=== PATIENT | female | born 1985 | race Caucasian/White ===

== ENCOUNTER 2017-12-05 21:57 | Observation (INO) ==
--- OUTSIDE RECORDS SUMMARY | 2017-12-05 22:02 | External Medical Summary | Continuity of Care Document ---
:1985 Author Organization [facility] Address [address] [place], [place] [id number] Phone Care Team Providers Name Role Phone Antonia YOOVicente Unavailable Unavailable Allergies, Adverse Reactions, Alerts Substance Reaction Severity Status OXYCODONE HCL Unknown Active Medications Medication Instructions Dosage Effective Dates Status Comments (start - stop) citalopram 10 mg take 1 tablet by 10 MG - Active tablet oral route every day Vitamin take 1 tablet by Not Available - Active tablet oral route every day omeprazole 20 mg take 1 capsule by - Active capsule,delayed oral route every release day before a meal Problems Condition Effective Dates (start - stop) Clinical Status Morbid (severe) obesity due to excess calories Encntr for tare weigher exam (general) (routine) w abnormal findings Pap Smear Screening, Cervix Encounter for routine checking of intrauterine contracep dev Body mass index (BMI) 50-59.9 , adult Encounter for suprvsn of normal , first trimester Antepartum hemorrhage, unspecified, - second trimester 25 weeks gestation of - Morbid (severe) obesity due to excess - calories Matern care for oth or susp poor fetl - grth, 2nd tri, unsp Obesity complicating , second - trimester 19 weeks gestation of - Morbid (severe) obesity due to excess calories Encntr for tare weigher exam (general) (routine) w abnormal findings Encounter for removal of intrauterine - contraceptive device Encounter for removal of intrauterine contraceptive device Encounter for oth general cnsl and advice on procreation Body mass index (BMI) 50-59.9 , adult Myalgia Right lower quadrant pain Supervision of other high risk - pregnancies, second trimester Matern Care For Abnlt Fetl Hrt Rate Or - Rhym, Unsp Tri, Unsp Antepartum hemorrhage, unspecified, - unspecified trimester Obesity complicating , second - trimester Supervision of other high risk - pregnancies, second trimester Matern Care For Abnlt Fetl Hrt Rate Or - Rhym, Unsp Tri, Unsp Antepartum hemorrhage, unspecified, - second trimester Obesity complicating , second - trimester Supervision of other high risk - pregnancies, third trimester Antepartum hemorrhage, unspecified, - second trimester 29 weeks gestation of - Supervision of other high risk - pregnancies, third trimester Antepartum hemorrhage, unspecified, - second trimester 28 weeks gestation of - Supervision of other high risk - pregnancies, third trimester Matern Care For Abnlt Fetl Hrt Rate Or - Rhym, Unsp Tri, Unsp Antepartum hemorrhage, unspecified, - unspecified trimester 28 weeks gestation of - Spotting complicating , - second trimester 16 weeks gestation of - Matern care for oth or susp poor fetl - grth, 2nd tri, unsp Antepartum hemorrhage, unspecified, - unspecified trimester Obesity complicating , second - trimester 25 weeks gestation of - Matern care for oth or susp poor fetl - grth, 2nd tri, unsp 14 weeks gestation of - Matern Care For Abnlt Fetl Hrt Rate Or - Rhym, Unsp Tri, Unsp Antepartum hemorrhage, unspecified, - unspecified trimester Obesity complicating , second - trimester 27 weeks gestation of - Matern Care For Abnlt Fetl Hrt Rate Or - Rhym, Unsp Tri, Unsp Antepartum hemorrhage, unspecified, - unspecified trimester 27 weeks gestation of - Matern Care For Abnlt Fetl Hrt Rate Or - Rhym, Unsp Tri, Unsp Antepartum hemorrhage, unspecified, - second trimester Encounter for suprvsn of normal - , third trimester 28 weeks gestation of - Matern Care For Abnlt Fetl Hrt Rate Or - Rhym, Unsp Tri, Unsp Antepartum hemorrhage, unspecified, - unspecified trimester Obesity complicating , third - trimester 29 weeks gestation of - Matern Care For Abnlt Fetl Hrt Rate Or - Rhym, Unsp Tri, Unsp Antepartum hemorrhage, unspecified, - unspecified trimester Obesity complicating , third - trimester 28 weeks gestation of - Antepartum hemorrhage, unspecified, - unspecified trimester Antepartum hemorrhage, unspecified, - second trimester Abnormal glucose complicating - 26 weeks gestation of - Antepartum hemorrhage, unspecified, - second trimester 25 weeks gestation of - Antepartum hemorrhage, unspecified, - second trimester Abnormal glucose complicating - 27 weeks gestation of - Antepartum hemorrhage, unspecified, - second trimester 26 weeks gestation of - Obesity complicating , first - trimester Encounter for suprvsn of normal - , first trimester 9 weeks gestation of - Encounter for suprvsn of normal - , second trimester 23 weeks gestation of - Encounter for suprvsn of normal - , second trimester 19 weeks gestation of - IUD Surveillance - Active Active Procedures Procedure Date Unknown Results Test Name Date and Time Measure Units Reference Range Abnormal Flag Comments Unknown Advance Directives Directive Yes / No Effective Date File Name Unknown Encounters Encounter Practice Location Reason(s) Diagnoses Date Provider Care Team Description For Visit Members Billy Smith Supervision of Nov-2 Daugherty Referring In Womens other high risk 6-201 Mandie. Provider: Health CRISTIANO, pregnancies, 8 700 Mandie Daugherty [address] Medical K, [address], [facility] hemorrhage, , [facility] [address] [place], unspecified, 120, Mohinder 120, [id number], second Luis [place], [place] [id number] weeks MICHELE [place], tel:+[phone] gestation of [phone]. , [place]. tel: tel: [phone] Billy Smith Matern Care For Nov- Daugherty Referring In Womens Ultrasound Abnlt Fetl Hrt 6- Mandie. Provider: Pam QUINONEZ, Rate Or Rhym, 8 700 Mandie Daugherty PO Box Unsp [facility], Medical K, 700 1522, UnspAntepartum [facility], hemorrhage, , [facility] Dr [place], unspecified, 120, Mohinder 120, [id number], unspecified Luis [place], [place] trimesterObesity MICHELE [place], tel:+2 complicating [phone]. , third , [place]. tel:+ [email or web address] weeks tel: [phone] gestation of [id number] Billy Smith Supervision of Nov- Daugherty Referring In Womens other high risk 3-201 Mandie. Provider: Health CRISTIANO, pregnancies, 8 700 Mandie Daugherty [address] third Medical K, 700 15[address], [facility] hemorrhage, , [facility] Dr [place], unspecified, 120, Mohinder 120, [id number], second Luis [place], [place] [email or web address] weeks MICHELE [place], tel:[phone] gestation of [phone]. , [place]. tel: tel: [phone] Billy Smith Supervision of Nov- Daugherty Referring In Womens Ultrasound other high risk 3-201 Mandie. Provider: Health PA, pregnancies, 8 700 Mandie Daugherty [address] Medical K, 700 1522, trimesterMatern [facility], Care For Abn[address], [facility] Dr [place], Fetl Hrt Rate Or 120, Mohinder 120, [id number], Rhym, Luis L[place], [place] UnspAntepartum MICHELE [place], tel: hemorrhage, [phone]. unspecified, , [place]. tel: unspecified tel: [phone] [email or web address] weeks [phone] gestation of [facility] Matern Care For Nov- Flash Referring In Womens Abnlt Fetl Hrt 9-201 Aldo. 700 Provider: Pam QUINONEZ, Rate Or Rhym, 8 Medical Mandie Daugherty PO Box Unsp Tri, Center K, [address], UnspAntepart , [facility], hemorrhage, 120, Center Dr [place], unspecified, [place], Mohinder 120, [id number], second Luis [place], trimesterEncounte [id number] [place], tel: r for suprvsn of , [place]. [id number]. normal , tel: tel: third [id number] [phone] weeks gestation of [facility] Matern Care For Daugherty Referring In Womens Ultrasound Abnlt Fetl Hrt 9-201 Mandie. Provider: Pam QUINONEZ, Rate Or Rhym, 8 700 Mandie Daugherty PO Box Unsp Tri, [facility], 700 1522, [facility], Dr, [facility] Dr [place], unspecified, 120, Mohinder 120, [id number], unspecified Luis [place], [place] trimesterObesity MICHELE, MICHELE, tel: complicating [phone]. , third , [place]. tel: [email or web address] weeks tel: [phone] gestation of [id number] Associates [facility] Supervision of Sobbing Referring In Womens other high risk 6-201 Silas. Provider: Pam QUINONEZ, pregnancies, 8 700 Mandie Daugherty PO Box second Medical K, 700 1522, trimesterMatern [facility], [address], [place] [address] [place], Fetl Hrt Rate Or [address] 120, [id number], Rhym, Unsp Tri, 120, [place], [place] UnspAntepartum Luis MICHELE, tel: hemorrhage, [place], [phone]. unspecified, [address], tel: unspecified US. [phone] trimesterObesity tel: complicating [phone] , second trimester [facility] Matern Care For Nov-1 Daugherty Referring In Womens Ultrasound Abnlt Fetl Hrt 6-201 Mandie. Provider: Health PA, Rate Or Rhym, 8 700 Mandie Daugherty PO Box Unsp Tri, Medical K, 700 1522, [facility], hemorrhage, , [facility] Center Dr [place], unspecified, 120, Mohinder 120, [id number], unspecified Luis [place], [place] trimesterObesity MICHELE [place], tel: complicating [phone]. , second , [place]. tel: weeks tel: [phone] gestation of [id number] Associates [facility] Antepartum Nov-1 Daugherty Referring In Womens hemorrhage, 2-201 Mandie. Provider: Pam QUINONEZ, unspecified, 8 700 Mandie Daugherty PO Box [facility] Medical K, 700 1522, trimesterAbnormal [facility], glucose , [facility] Center Dr [place], complicating 120, Mohinder 120, [id number], [email or web address] weeks Luis [place], [place] gestation of MICHELE, MICHELE, tel: [phone]. , [place]. tel: tel: [phone] Billy Smith Matern Care For Nov-1 Daugherty Referring In Womens Ultrasound Abnlt Fetl Hrt 2-201 Mandie. Provider: Health PA, Rate Or Rhym, 8 700 Mandie Daugherty PO Box Unsp Tri, Medical K, 700 1522, [facility], , [facility] Center Dr [place], unspecified, 120, Mohinder 120, [id number], unspecified Luis [place], [place] [id number] weeks MICHELE [place], tel: gestation of [phone]. , [place]. tel: tel: [phone] Billy Smith Antepartum Walker-0 Daugherty Referring In Womens hemorrhage, 9-201 Mandie. Provider: Pam QUINONEZ, key, 8 700 Mandie Daugherty PO Box second Medical K, 700 1522, trimesterAbnormal [facility] [place], danya Trejo, [facility] Dr [place], complicating 120, Mohinder 120, [id number], [email or web address] weeks Luis [place], gestation of MICHELE, MICHELE, tel: [phone]. , [place]. tel: tel: [phone] Associates [facility] Walker-0 Daugherty In Womens 5-201 Mandie. Pam QUINONEZ, 8 700 [address] Medical [address], [place], , [facility] MICHELE, 120, , [facility] [place], tel:[phone] , [place]. tel: [phone] Billy Smith Antepartum Walker-0 Daugherty Referring In Womens hemorrhage, 5-201 Mandie. Provider: Pam QUINONEZ, key, 8 700 Mandie Daugherty PO Box second Medical K, 700 1522, [email or web address] weeks [facility] [place], gestation of Dr, [facility] Dr [place], 120, Mohinder 120, [id number], Luis [place], MICHELE [place], tel: [phone]. , [place]. tel: tel: [phone] Billy Smith Antepartum Walker-0 Daugherty Referring In Womens hemorrhage, 2-201 Mandie. Provider: Pam QUINONEZ, key, 8 700 Mandie Daugherty PO Box second Medical K, 700 1522, [email or web address] weeks [facility] [place], gestation of , [facility] Dr [place], 120, Mohinder 120, [id number], Luis [place], MICHELE, MICHELE, tel: [phone]. , [place]. tel: tel: [phone] Billy Smith Antepartum Rajendra-2 Daugherty Referring In Womens hemorrhage, 8-201 Mandie. Provider: Pam QUINONEZ, unspecified, 8 700 Mandie Daugherty PO Box second Medical K, 700 1522, weeks [facility] [place], gestation of Dr, [facility] Center Dr [place], 120, Mohinder 120, , [place], [place], [place], tel:+ [phone]. , [place]. tel: tel: [phone] [facility] Matern care for Rajendra-2 Daugherty Referring In Womens Ultrasound oth or susp poor - Mandie. Provider: Pam QUINONEZ, fetl grth, 2nd 8 700 Mandie Daugherty PO Box tri, [facility], 700 1522, unspAntepartum [facility] [place], kimani, , [facility] Dr [place], unspecified, 120, Mohinder 120, , unspecified Luis [place], trimesterObesity MICHELE, MICHELE, tel:+ complicating [phone]. , second , [place]. tel:+ [email or web address] weeks tel: [phone] gestation of [id number] Associates [facility] Supervision of Rajendra-2 Kindel Referring In Womens other high risk - Gina. Provider: Pam QUINONEZ, pregnancies, 8 [address] Mandie Daugherty PO Box second Arik, , 700 1522, [facility] MICHELE, [address] [address] [place], Fetl Hrt Rate Or [id number] Mohinder 120, [id number], Rhym, Unsp Tri, , [place]. [place], UnspAntepartum tel: [place], tel:+ hemorrhage, [phone]. unspecified, tel:+ second [phone] trimesterObesity complicating , second trimester [facility] Antepartum Rajendra-2 Daugherty Referring In Womens hemorrhage, - Mandie. Provider: Pam QUINONEZ, unspecified, 8 700 Mandie Daugherty PO Box unspecified Medical K, 700 1522, trimester [address], [facility] Center Dr [place], 120, Mohinder 120, , Luis [place], [place] MICHELE [place], tel: [phone]. , [place]. tel: tel: [phone] Billy Smith Encounter for Rajendra-1 Daugherty Referring In Womens suprvsn of normal 4-201 Mandie. Provider: Pam QUINONEZ, , second 8 700 Mandie Daugherty PO Box [id number] weeks Medical , 700 1522, gestation of [facility], , [facility] [place], 120, Mohinder 120, [id number], Luis [place], [facility], [place], tel: [phone]. , [place]. tel: tel: [phone] Billy Smith Encounter for May-1 Daugherty Referring In Womens suprvsn of normal 7-201 Mandie. Provider: Pam QUINONEZ, , second 8 700 Mandie Daugherty PO Box [email or web address] weeks [facility], 700 1522, gestation of [facility], , [facility] Dr [place], 120, Mohinder 120, [id number], Luis [place], [facility], [place], tel: [phone]. , [place]. tel: tel: [phone] Billy Smith Morbid (severe) May-1 Daugherty Referring In Womens Ultrasound obesity due to 7-201 Mandie. Provider: Pam QUINONEZ, excess 8 700 Mandie Daugherty PO Box caloriesMatern [facility], 700 1522, care for oth or [facility], susp poor fetl , [facility] Dr [place], grth, 2nd tri, 120, Mohinder 120, , unspObesity Luis [place], complicating MICHELE, MICHELE, tel: , second [phone]. [id number] weeks , [place]. tel: gestation of tel: [phone] Billy Smith Spotting May-0 Daugherty Referring In Womens complicating 2-201 Mandie. Provider: Pam QUINONEZ, , second 8 700 Mandie Daugherty PO Box [email or web address] weeks [facility], 700 1522, gestation of [facility], , [facility] Dr [place], 120, Mohinder 120, [id number], Luis [place], MICHELE [place], tel:[phone]. , [place]. tel: tel: [phone] Billy Smith Matern care for Apr-1 Daugherty Referring In Womens oth or susp poor 2-201 Mandie. Provider: Pam QUINONEZ, fetl grth, 2nd 8 700 Mandie Daugherty PO Box tri, [id number] weeks Medical , 700 1522, gestation of [facility], , [facility] Dr [place], 120, Mohinder 120, , Luis [place], MICHELE [place], tel:[phone]. , [place]. tel: tel: [phone] Billy Smith Obesity Mar-0 Daugherty Referring In Womens complicating 9-201 Mandie. Provider: Pam QUINONEZ, , first 8 700 Mandie Daugherty PO Box trimesterEncounte Medical , 700 1522, r for suprvsn of [facility], normal , , [facility] Dr [place], first trimester9 120, Mohinder 120, [id number], weeks gestation Luis [place], [place] of MICHELE [place], tel:[phone]. , [place]. tel: tel: [phone] Billy Smith Encounter for Jun-2 Sobbing Referring In Womens suprvsn of normal 3-201 Silas. Provider: Pam QUINONEZ, , first 8 700 Mandie Daugherty PO Box trimester Medical K, 700 1522, [facility], [facility], [address] [address] [place], Suite Mohinder 120, , 120, [place], [place] MICHELE [place], tel: MICHELE, [phone]. [id number], tel: [place]. [phone] tel: [phone] Billy Smith MyalgiaRight Aug-2 Daugherty Referring In Womens lower quadrant 2-201 Mandie. Provider: Pam QUINONEZ, pain 7 700 Mandie Daugherty PO Box Medical , 700 1522, [address], [facility] Dr [place], 120, Mohinder 120, , Luis [place], [place] MICHELE [place], tel: [phone]. , [place]. tel: tel: [phone] Associates Luis Morbid (severe) Apr-2 Daugherty Referring In Womens obesity due to Mandie. Provider: Health CRISTIANO, excess 7 700 Mandie Daugherty PO Box caloriesEncntr [facility], 700 1522, for tare weigher exam [facility], (general) , [facility] Dr [place], (routine) w 120, Mohinder 120, , abnormal Luis [place], [place] findingsEncounter MICHELE [place], tel: for removal of [phone]. intrauterine , [place]. tel: contraceptive tel: [phone] deviceEncounter [id number] for removal of intrauterine contraceptive deviceEncounter for oth general cnsl and advice on procreationBody mass index (BMI) 50-59.9 , adult [facility] Morbid (severe) Apr-2 Daugherty Referring In Womens obesity due to Mandie. Provider: Health CRISTIANO, excess 6 700 Mandie Daugherty PO Box [facility], 700 1522, for tare weigher exam [facility], (general) , [facility] Dr [place], (routine) w 120, Mohinder 120, , abnormal Luis [place], [place] findingsPap Smear MICHELE [place], tel: Screening, [phone]. CervixEncounter , [place]. tel: for routine tel: [phone] checking of [phone] intrauterine contracep devBody mass index (BMI) 50-59.9 , adult Associates Luis Dec-2 Oneil Referring In Womens 4-201 Analy. Provider: Health CRISTIANO, 4 700 Mandie Daugherty PO Box [facility], 700 15[address], [place] [address], [facility] Dr [place], 120, Mohinder 120, , Luis [place], [place] MICHELE [place], tel: [phone]. , [place]. tel: tel: [phone] Billy Smith Daugherty In Womens 1-201 Mandie. [employer] CRISTIANO, 4 700 PO [facility] [address], [address] [address] [place]da, [facility] [place], 120, [id number], [place], [place], tel: [phone] , . tel: [phone] Family History Family Member Diagnosis Age At Onset No family history of Stroke No family history of Kidney Problems No family history of Osteoporosis No family history of Epilepsy No family history of Hypertension Maternal aunt Thrombosis 40 No family history of Uterine Cancer No family history of Thyroid Disorder No family history of Colon Cancer Father Diabetes mellitus No family history of Cardiovascular Disease No family history of Breast Cancer Mother Diabetes mellitus No family history of Lung Disease No family history of Ovarian Cancer Immunizations Vaccine Date Status Comments Tdap completed Source: New Immunization Record Influenza, injectable, completed Note: Invalid documented admin quadrivalent, preservative free, date was . ; 3 yrs or older Source: Other Provider Payers Payer name Insurance type Covered libertarian ID Authorization(s) Prime [id number] BCBS Out Of State [id number] [facility] [id number] Medicaid [facility] [id number] Medicaid Social History Type Description Quantity Date Captured Unknown Vital Signs Date / Height Weight BMI Pulse Blood Temperature Respiratory Body Head BMI Time: Rate Pressure Rate Surface Circumference percentile Area Unknown Chief Complaint And Reason For Visit Unknown Chief Complaint And Reason For Visit Reason For Referral Reason For Referral Unknown Plan Of Care Date Type Action Status Goal Lifestyle education regarding completed diet Goal Lifestyle education regarding completed diet Goal Lifestyle education regarding completed diet Appointment Chelsy Moser BOOKED Appointment Chelsy Moser BOOKED Appointment Chelsy Moser BOOKED Chelsy Meng BOOKED Appointment Chelsy Moser BOOKED Chelsy Meng BOOKED Appointment Chelsy Moser BOOKED Appointment Chelsy Moser BOOKED Josie [place], Chelsy BOOKED Appointment Hardesty, Chelsy BOOKED Appointment Hardesty, Chelsy BOOKED Appointment Hardesty, Chelsy BOOKED Appointment Hardesty, Chelsy BOOKED Appointment Hardesty, Chelsy BOOKED Appointment Hardesty, Chelsy BOOKED Appointment Hardesty, Chelsy BOOKED Appointment Hardesty, Chelsy BOOKED Appointment Hardesty, Chelsy BOOKED Appointment Hardesty, Chelsy BOOKED Appointment Hardesty, Chelsy BOOKED Future Order: Radiology Order Complete OB Ultrasound > 14 Weeks Ordered ([id number]) Future Order: Radiology Order Biophysical Profile without NST Ordered ([id number]) Future Order: Radiology Order Biophysical Profile without NST Ordered ([id number]) Future Order: Radiology Order Biophysical Profile without NST Ordered ([id number]) Future Order: Radiology Order Biophysical Profile without NST Ordered ([id number]) Future Order: Radiology Order Biophysical Profile without NST Ordered ([id number]) Future Order: Radiology Order Ultrasound OB Follow-up ([id number]) Ordered Future Order: Radiology Order Biophysical Profile without NST Ordered ([id number]) Date Type Problem Goal Intervention Status Start Date Unknown. History Of Present Illness Encounter Date Complaint History Of Present Illness This patient has no known history of present illness Functional Status Encounter Date Functional Assessment Cognitive Assessment Unknown Medications Administered Medication Instructions Dosage Effective Dates (start - stop) Status Comments Drug Treatment Unknown Instructions Date Instruction Additional Information gestational glucose lab screening HIV and other routine tests risk factors identified by history anticipated course of care nutrition and weight gain counseling, special diet toxoplasmosis precautions (cats / raw meat) exercise indications for ultrasound influenza vaccine environmental / work hazards travel tobacco (ask, advise, assess, assist and arrange) alcohol illicit / recreational drugs use of any medications (including supplements, vitamins, herbs, OTC drugs) smoking counseling domestic violence seat belt use genetic testing new ob handbook Zika virus assessment & precautions dentist, wt gain 15-20# Giving encouragement to exercise Related to Body mass index 50.0-59.9 Lifestyle education regarding diet Related to Body mass index 50.0-59.9 Giving encouragement to exercise Related to Body mass index 50.0-59.9 Lifestyle education regarding diet Related to Body mass index 50.0-59.9 Giving encouragement to exercise Related to Body mass index 50.0-59.9 Lifestyle education regarding diet Related to Body mass index 50.0-59.9
--- OUTSIDE RECORDS SUMMARY | 2017-12-05 22:02 | External Medical Summary | Continuity of Care Document ---
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 Advance Directives Directive Yes / No Effective Date File Name Unknown Encounters Encounter Practice Location Reason(s) Diagnoses Date Provider Care Team Description For Visit Members Billy Smith Supervision of Nov-2 Daugherty Referring In Womens other high risk 6-201 Mandie. Provider: Health CRISTIANO, pregnancies, 8 700 Mandie Daugherty [address] Box [facility] , 700 1522, [facility], Dr, [facility] [address] [place], unspecified, 120, Mohinder 120, [id number], second Luis [place], [place] [id number] weeks MICHELE [place], tel:+ gestation of [phone]. , [place]. tel: tel:[phone] Billy Smith Matern Care For Nov-2 Daugherty Referring In Womens Ultrasound Abnlt Fetl Hrt 6-201 Mandie. Provider: Pam QUINONEZ, Rate Or Rhym, 8 700 Mandie Daugherty PO Box Unsp [facility] Medical K, 700 1522, UnspAntepartum [facility], hemorrhage, Dr, [facility] [address] [place], unspecified, 120, Mohinder 120, [id number], unspecified Luis Smith, [place] trimesterObesity MICHELE [place], tel:+ complicating [phone]. , third , [place]. tel:+ [email or web address] weeks tel: [phone] gestation of [id number] [facility] Supervision of Nov-2 Daugherty Referring In Womens other high risk 3-201 Mandie. Provider: Pam QUINONEZ, pregnancies, 8 700 Mandie Daugherty PO Box third Medical K, 700 1522, [facility]Antepart [facility], [facility] Dr, [facility] [address] [place], unspecified, 120, Mohinder 120, [id number], second Luis Smith, [place] [id number] weeks [place], MICHELE, tel: gestation of [phone]. , [place]. tel: tel: [phone] [facility] Supervision of Nov- Daugherty Referring In Womens Ultrasound other high risk - Mandie. Provider: Health CRISTIANO, pregnancies, 8 700 Mandie Daugherty PO Box third Medical K, 700 1522, trimesterMatern [facility], [facility] For Abnlt Dr, [facility] [address] [place], Fetl Hrt Rate Or 120, Mohinder 120, [id number], Rhym, Luis Landeros Smith, [place] UnspAntepartum [place], [place], tel: hemorrhage, [phone]. unspecified, , [place]. tel: unspecified tel: [phone] [id number] weeks [id number] gestation of [facility] Matern Care For Nov- Flash Referring In Womens Abnlt Fetl Hrt Aldo. 700 Provider: Health CRISTIANO, Rate Or Rhym, 8 Medical Mandie Daugherty PO Box Unsp Tri, [place], 700 1522, UnspAntepartum , [facility] [place], hemorrhage, 120, [place] [address] [place], unspecified, [place], Mohinder 120, [id number], second Luis [place], trimesterEncounte [id number] [place], tel: r for suprvsn of , [place]. [id number]. normal , tel: tel: third [phone] weeks gestation of [facility] Matern Care For Nov- Daugherty Referring In Womens Ultrasound Abnlt Fetl Hrt Mandie. Provider: Pam QUINONEZ, Rate Or Rhym, 8 700 Mandie Daugherty PO Box Unsp Tri, [facility], 700 1522, [facility]spAntepartum [facility], [facility], Dr, [facility] [address] [place], unspecified, 120, Mohinder 120, [id number], unspecified Luis Smith, [place] trimesterObesity MICHELE [place], tel: complicating [phone]. , third , [place]. tel: [email or web address] weeks tel: [phone] gestation of [id number] [facility] Supervision of Sobbing Referring In Womens other high risk 6-201 Silas. Provider: Health PA, pregnancies, 8 700 Mandie Daugherty PO Box [facility] Medical , 700 1522, trimesterMatern [facility], Care For Abnlt Drive, [place] [address] [place], Fetl Hrt Rate Or Suite Mohinder 120, , Rhym, Unsp Tri, 120, [place], [place] UnspAntepartum MICHELE Smith, tel: hemorrhage, MICHELE, [id number]. unspecified, [id number], tel: unspecified US. [phone] trimesterObesity tel: complicating [phone] , second trimester [facility] Matern Care For Daugherty Referring In Womens Ultrasound Abnlt Fetl Hrt 6-201 Mandie. Provider: Health PA, Rate Or Rhym, 8 700 Mandie Daugherty PO Box Unsp Tri, Medical , 700 1522, [facility], [facility], Dr, [facility] Dr [place], unspecified, 120, Mohinder 120, [id number], unspecified Luis Smith, [place] trimesterObesity MICHELE [place], tel: complicating [phone]. , second , [place]. tel: weeks tel: [phone] gestation of [id number] [facility] Antepartum Nov- Daugherty Referring In Womens hemorrhage, 2-201 Mandie. Provider: Health PA, unspecified, 8 700 Mandie Daugherty PO Box second Medical K, 700 1522, trimesterAbnormal [facility], glucose Dr, [facility] Dr [place], complicating 120, Mohinder 120, [id number], [email or web address] weeks Luis Smith, [place] gestation of MICHELE [place], tel: [phone]. , [place]. tel: tel: [phone] Billy Smith Matern Care For Walker-1 Daugherty Referring In Womens Ultrasound Abnlt Fetl Hrt 2-201 Mandie. Provider: Pam QUINONEZ, Rate Or Rhym, 8 700 Mandie Daugherty PO Box Unsp [facility], 700 1522, UnspAntepartum [facility], [facility], , [facility] [address] [place], unspecified, 120, Mohinder 120, [id number], unspecified Luis Smith, [email or web address] weeks MICHELE [place], tel: gestation of [phone]. , [place]. tel: tel: [phone] Billy Smith Antepartum Walker-0 Daugherty Referring In Womens hemorrhage, 9-201 Mandie. Provider: Pam QUINONEZ, vickiified, 8 700 Mandie Daugherty PO Box [facility], 700 1522, trimesterAbnormal [facility], glucose Dr, [facility] [address] [place], complicating 120, Mohinder 120, [id number], [email or web address] weeks Luis Smith, gestation of MICHELE [place], tel: [phone]. , [place]. tel: tel: [phone] Billy Smith Walker-0 Daugherty In Womens 6-201 Mandie. Pam QUINONEZ, 8 700 PO Box Medical 1522, [place], Mohinder Trejo, 120, [id number], [place], [place], tel: [phone] , [place]. tel: [phone] Billy Smith Antepartum Walker-0 Daugherty Referring In Womens hemorrhage, 5-201 Mandie. Provider: Pam QUINONEZ, vickiified, 8 700 Mandie Daugherty PO Box [facility], 700 1522, [email or web address] weeks [facility] [place], gestation of Dr, [facility] [address] [place], 120, Mohinder 120, [id number], Luis Smith, MICHELE [place], tel: [phone]. , [place]. tel: tel: [phone] Billy Smith Antepartum Walker-0 Daugherty Referring In Womens hemorrhage, 2-201 Mandie. Provider: Pam QUINONEZ, unspecified, 8 700 Mandie Daugherty PO Box [facility] Medical , 700 1522, [email or web address] weeks [facility], [facility] of , [facility] [place], 120, Mohinder 120, [id number], [place], [place], [place], tel:[phone]. , [place]. tel: tel: [phone] Billy Smith Antepartum Rajendra-2 Daugherty Referring In Womens hemorrhage, 8-201 Mandie. Provider: Pam QUINONEZ, unspecified, 8 700 Mandie Daugherty PO Box [facility] Medical , 700 1522, [email or web address] weeks [facility], gestation of , [facility] [address] [place], 120, Mohinder 120, , [place], [place], [place], tel:[phone]. , [place]. tel: tel: [phone] Billy Smith Matern care for Rajendra-2 Daugherty Referring In Womens Ultrasound oth or susp poor 8- Mandie. Provider: Pam QUINONEZ, fetl grth, 2nd 8 700 Mandie Daugherty PO Box [facility], 700 1522, unspAntepartum [facility], hemorrhage, Dr, [facility] [address] [place], unspecified, 120, Mohinder 120, , unspecified Luis Smith, trimesterObesity MICHELE, MICHELE, tel: complicating [phone]. , second , [place]. tel: [email or web address] weeks tel: [phone] gestation [facility] [id number] [facility] Supervision of Rajendra-2 Kindel Referring In Womens other high risk 4-201 Gina. Provider: Pam QUINONEZ, pregnancies, 8 3232 E Mandie Daugherty PO Box second [facility], 700 1522, [facility]Matern [facility], [facility] [place], [place] [address] [place], Fetl Hrt Rate Or [id number] Mohinder 120, , Rhym, Unsp [facility] , [place]. [place], UnspAntepartum tel: [place], tel: hemorrhage, [phone]. unspecified, tel: second [phone] trimesterObesity complicating , second trimester [facility] Antepartum Rajendra-2 Daugherty Referring In Womens hemorrhage, 4-201 Mandie. Provider: Pam QUINONEZ, unspecified, 8 700 Mandie Daugherty PO Box unspecified Medical , 700 1522, trimester [place] Kevyn Gutierrez, , [facility] [place], 120, Mohinder 120, , [place], [place], [place], tel: [phone]. , [place]. tel: tel: [phone] Billy Smith Encounter for Rajendra-1 Daugherty Referring In Womens suprvsn of normal 4-201 Mandie. Provider: Pam QUINONEZ, , second 8 700 Mandie Daugherty PO Box [email or web address] weeks Medical , 700 1522, gestation of [facility] [place], Dr, [facility] [address] [place], 120, Mohinder 120, , Luis Smith, [place] MICHELE, MICHELE, tel: [phone]. , [place]. tel: tel: [phone] Smith Encounter for May-1 Daugherty Referring In Womens suprvsn of normal 7-201 Mandie. Provider: Pam QUINONEZ, , second 8 700 Mandie Daugherty PO Box [email or web address] weeks Medical , 700 1522, gestation of [place]evyn Gutierrez, Dr, [facility] [address] [place], 120, Mohinder 120, [id number], Luis [place], [place], [place], tel: [phone]. , [place]. tel: tel: [phone] Billy Smith Morbid (severe) May-1 Daugherty Referring In Womens Ultrasound obesity due to 7-201 Mandie. Provider: Pam QUINONEZ, excess 8 700 Mandie Daugherty PO Box caloriesMatern [facility], 700 1522, care for oth or [facility] [place], susp poor fetl , [facility] [address] [place], grth, 2nd tri, 120, Mohinder 120, [id number], unspObesity Luis Smith, complicating MICHELE [place], tel: , second [phone]. [email or web address] weeks , [place]. tel: gestation of tel: [phone] Billy Smith Spotting May-0 Daugherty Referring In Womens complicating 2-201 Mandie. Provider: Pam QUINONEZ, , second 8 700 Mandie Daugherty PO Box [email or web address] weeks Medical , 700 1522, gestation of [facility], , [facility] [address] [place], 120, Mohinder 120, [id number], Luis Smith, MICHELE [place], tel:[phone]. , [place]. tel: tel: [phone] Billy Smith Matern care for Apr-1 Daugherty Referring In Womens oth or susp poor 2-201 Mandie. Provider: Pam QUINONEZ, fetl jacob, 2nd 8 700 Mandie Daugherty PO Box tri, [id number] weeks Medical , 700 1522, gestation of [facility], , [facility] [address] [place], 120, Mohinder 120, [id number], Luis Smith, MICHELE [place], tel: [phone]. , [place]. tel: tel: [phone] Billy Smith Obesity Mar-0 Daugherty Referring In Womens complicating 9-201 Mandie. Provider: Pam QUINONEZ, , first 8 700 Mandie Daugherty PO Box trimesterEncounte Medical K, 700 1522, r for suprvsn of [facility], normal , , [facility] [address] [place], first trimester9 120, Mohinder 120, [id number], weeks gestation Luis Smith, [place] of MICHELE [place], tel: [phone]. , [place]. tel: tel: [phone] Billy Smith Encounter for Fe-2 Sobbing Referring In Womens suprvsn of normal 3-201 Silas. Provider: Pam QUINONEZ, , first 8 700 Mandie Daugherty PO Box trimester Medical , 700 1522, [facility], [place] [address] [place], Suite Mohinder 120, [id number], Luis Meehan, MICHELE Chawla, tel: MICHELE, [phone]. [id number], tel: US. [phone] tel: [phone] [facility] MyalgiaRight Aug-2 Daugherty Referring In Womens lower quadrant 2-201 Mandie. Provider: Pam QUINONEZ, pain 7 700 Mandie Daugherty PO Box [facility], 700 1522, [facility] [place], Dr, [facility] [address] [place], 120, Mohinder 120, , Luis Smith, [place] MICHELE [place], tel:[phone]. , [place]. tel: tel: [phone] [facility] Morbid (severe) Apr-2 Daugherty Referring In Womens obesity due to 1-201 Mandie. 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 intrauterine , [place]. tel: contraceptive tel: [phone] deviceEncounter [phone] for removal of intrauterine contraceptive deviceEncounter for oth general cnsl and advice on procreationBody mass index (BMI) 50-59.9 , adult [facility] Morbid (severe) Apr-2 Daugherty Referring In Womens obesity due to 9-201 Mandie. 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 CervixEncounter , . tel: for routine tel: [phone] checking of [id number] intrauterine contracep devBody mass index (BMI) 50-59.9 , adult [facility] Oneil Referring In Womens - [place]. Provider: Pam QUINONEZ, 4 700 Mandie Daugherty PO Box Medical K, 700 1522, [place] [address], [place], 120, Mohinder 120, [id number], [place], [place], [place], tel: [phone]. , [place]. tel: tel: [phone] [facility] Daugherty In Womens - Mandie. Health CRISTIANO, 4 700 PO Box Medical 1522, [place] [address] Brenda, Mohinder [place], 120, [id number], [place], [place], tel: [phone] , . tel: [phone] Family History Family Member Diagnosis Age At [...] Provider Payers Payer name Insurance type Covered green party ID Authorization(s) Adrienne Wilson [id number] BCBS Out Of State [id number] [facility] - [id number] Medicaid [facility] [id number] Medicaid Social History Type Description Quantity Date [...] Goal Lifestyle education regarding completed diet Appointment Loughman, Chelsy BOOKED Appointment Loughman, Chelsy BOOKED Appointment Loughman, Chelsy BOOKED Appointment Loughman, Chelsy BOOKED Appointment Loughman, Chelsy BOOKED Appointment Loughman, Chelsy BOOKED Appointment Loughman, Chelsy BOOKED Appointment Loughman, Chelsy BOOKED Appointment Loughman, Chelsy BOOKED Appointment Loughman, Chelsy BOOKED Appointment Loughman, Chelsy BOOKED Appointment Loughman, Chelsy BOOKED Appointment Loughman, Chelsy BOOKED Appointment Loughman, Chelsy BOOKED Appointment Loughman, Chelsy BOOKED Appointment Loughman, Chelsy BOOKED Appointment Loughman, Chelsy BOOKED Appointment Loughman, Chelsy BOOKED Appointment Loughman, Chelsy BOOKED Appointment [place]man, Chelsy BOOKED Future Order: Radiology Order Complete OB Ultrasound > 14 Weeks Ordered ([id number]) Future Order: Radiology Order Biophysical Profile without NST Ordered ([id number]) Future Order: Radiology Order Biophysical Profile without NST Ordered ([id number]) Future Order: Radiology Order Biophysical Profile without NST Ordered ([id number]) Future Order: Radiology Order Biophysical Profile without NST Ordered ([id number]) Future Order: Radiology Order Biophysical Profile without NST Ordered ([id number]) Future Order: Radiology Order Ultrasound OB Follow-up ([id number]) Ordered Future Order: Radiology Order Biophysical Profile without NST Ordered ([id number]) Date Type Problem Goal Intervention Status Start [...]
--- OUTSIDE RECORDS SUMMARY | 2017-12-05 22:02 | External Medical Summary | Continuity of Care Document ---
:1985 Author Organization [facility] Address [address] [place], [place] [id number] Phone Care Team Providers Name Role Phone [...] Effective Dates (start - stop) Clinical Status Antepartum hemorrhage, unspecified, - second trimester 26 weeks gestation of - Morbid (severe) obesity due to excess calories Encntr for conveyor line battery charger exam (general) (routine) w abnormal findings Pap [...] obesity due to excess calories Encntr for conveyor line battery charger exam (general) (routine) w abnormal findings Encounter for removal of intrauterine Apr-21-2017 - contraceptive device Encounter for removal of [...] complicating - 27 weeks gestation of - Obesity complicating , first - trimester Encounter for suprvsn of normal - , first trimester 9 weeks gestation of - Encounter for suprvsn of normal - , second trimester 23 weeks gestation of - Encounter for suprvsn of normal - , second trimester 19 weeks gestation of - IUD Surveillance - Active Active Procedures Procedure Date non-stress test OB Visit No Charge Results Test Name Date and Time Measure Units Reference Range Abnormal Flag Comments Panel Description: CBC With Differential/Platelet WBC 11:45:00 8.4 x10E3/uL 3.4-10.8 RBC 11:45:00 3.90 x10E6/uL 3.77-5.28 Hemoglobin 11:45:00 10.6 g/dL 11.1-15.9 L Hematocrit 11:45:00 33.7 % 34.0-46.6 L MCV 11:45:00 86 fL 79-97 MCH 11:45:00 27.2 pg 26.6-33.0 MCHC 11:45:00 31.5 g/dL 31.5-35.7 RDW 11:45:00 15.2 % 12.3-15.4 Platelets 11:45:00 218 x10E3/uL 150-379 Neutrophils 11:45:00 79 % Not Estab. Lymphs 11:45:00 17 % Not Estab. Monocytes 11:45:00 3 % Not Estab. Eos 11:45:00 1 % Not Estab. Basos 11:45:00 0 % Not Estab. Neutrophils (Absolute) 11:45:00 6.5 x10E3/uL 1.4-7.0 Lymphs (Absolute) 11:45:00 1.5 x10E3/uL 0.7-3.1 Monocytes(Absolute) 11:45:00 0.3 x10E3/uL 0.1-0.9 Eos (Absolute) 11:45:00 0.1 x10E3/uL 0.0-0.4 Baso (Absolute) 11:45:00 0.0 x10E3/uL 0.0-0.2 Immature Granulocytes 11:45:00 0 % Not Estab. Immature Grans (Abs) 11:45:00 0.0 x10E3/uL 0.0-0.1 Panel Description: Glucose [Mass/volume] in Serum or Plasma --1 hour post 50 g glucose PO Gestational Diabetes Screen 11:45:00 139 mg/dL 65-135 H Advance Directives Directive Yes / No Effective Date File Name Unknown Encounters Encounter Practice Location Reason(s) Diagnoses Date Provider Care Team Description For Visit Members Billy [place] Supervision of Daug[place] Referring In Womens other high risk 6-201 Mandie. Provider: Health PA, pregnancies, 8 700 Mandie Daugherty [address] [facility] , [address] 15[address], [facility] hemorrhageDr, [facility] Dr [place], unspecified, 120, Mohinder 120, [id number], second Luis [place], [email or web address] weeks MICHELE [place], tel:+ gestation of [phone]. , [place]. tel: tel: [phone] Billy [place] Matern Care For [place] Referring In Womens Ultrasound Abnlt Fetl Hrt 6- Mandie. Provider: Health PA, Rate Or Rhym, 8 700 Mandie Daugherty PO Box Unsp [facility] K, 700 1522, [facility], Dr kimani, [facility] Dr [place], unspecified, 120, Mohinder 120, [id number], unspecified Luis [place], trimesterObesity MICHELE [place], tel: complicating [phone]. , third , [place]. tel: [email or web address] weeks tel: [phone] gestation of [id number] [facility] Supervision of [place] Referring In Womens other high risk 3-201 Mandie. Provider: Health PA, pregnancies, 8 700 Mandie Daugherty PO Box third Medical K, 700 1522, [facility] hemorrhageDr, [facility] Dr [place], unspecified, 120, Mohinder 120, [id number], second Luis [place], [email or web address] weeks MICHELE [place], tel:+ gestation of [phone]. , [place]. tel: tel: [phone] Billy [place] Supervision of Daug[place] Referring In Womens Ultrasound other high risk 3-201 Mandie. Provider: Health CRISTIANO, pregnancies, 8 700 Mandie Daugherty PO Box third Medical K, 700 1522, trimesterMatern [facility], Care For Abnlt Dr, [facility] Dr [place], Fetl Hrt Rate Or 120, Mohinder 120, [id number], Rhym, UnsLuis [place], [place] UnspAntepartum MICHELE [place], tel: hemorrhage, [phone]. unspecified, , [place]. tel: unspecified tel: [phone] [id number] weeks [phone] gestation of [facility] Matern Care For Nov- Flash Referring In Womens Abnlt Fetl Hrt 9-201 Aldo. 700 Provider: Health PA, Rate Or Rhym, 8 Medical Mandie Daugherty PO Box Unsp Tri, Center K, 700 1522, UnspAntepartum , [facility], hemorrhage, 120, Center Dr [place], unspecified, [place], Mohinder 120, [id number], second Luis [place], trimesterEncounte [id number] [place], tel: r for suprvsn of , [place]. [id number]. normal , tel: tel: third [id number] [phone] weeks gestation of [facility] Matern Care For [place] Referring In Womens Ultrasound Abnlt Fetl Hrt 9- Mandie. Provider: Health PA, Rate Or Rhym, 8 700 Mandie Daugherty PO Box Unsp Tri, Medical K, 700 1522, [facility]An[facility]partum [facility] Dr, [facility] Dr [place], unspecified, 120, Mohinder 120, [id number], unspecified Luis [place], [place] trimesterObesity MICHELE [place], tel: complicating [phone]. , third , [place]. tel: [email or web address] weeks tel: [phone] gestation of [id number] Associates [facility] Supervision of Sobbing Referring In Womens other high risk 6-201 Silas. Provider: Pam QUINONEZ, pregnancies, 8 700 Mandie Daugherty PO Box second Medical , 700 1522, trimesterMatern [facility], Care For Ab[address], [place] [address] [place], Fetl Hrt Rate Or [address] Mohinder 120, [id number], Rhym, Unsp Tri, 120, [place], [place] UnspAntepartum MICHELE [place], tel: hemorrhage, [place], [id number]. unspecified, [id number], tel: unspecified [place]. [phone] trimesterObesity tel: complicating [phone] , second trimester [facility] Matern Care For Nov- [place] Referring In Womens Ultrasound Abnlt Fetl Hrt 6-201 Mandie. Provider: Pam QUINONEZ, Rate Or Rhym, 8 700 Mandie Daug[place] PO Box Unsp Tri, Medical , 700 1522, [facility], hemorrhage, Dr, [facility] Dr [place], unspecified, 120, Mohinder 120, [id number], unspecified Luis [place], [place] trimesterObesity MICHELE [place], tel: complicating [phone]. , second , [place]. tel: [email or web address] weeks tel:4153 gestation of [id number] [facility] Antepartum Nov- [place] Referring In Womens hemorrhage, 2-201 Mandie. Provider: Pam QUINONEZ, unspecified, 8 700 Mandie [place] PO Box second Medical , 700 1522, trimesterAbnormal [facility], glucose Dr, [facility] Dr [place], complicating 120, Mohinder 120, [id number], [email or web address] weeks Luis [place], [place] gestation of MICHELE [place], tel: [phone]. , [place]. tel: tel: [phone] Billy [place] Matern Care For Nov- Daugherty Referring In Womens Ultrasound Abnlt Fetl Hrt 2-201 Mandie. Provider: Pam QUINONEZ, Rate Or Rhym, 8 700 Mandie [place] PO Box Unsp Tri, Medical , 700 1522, [facility], hemorrhage, Dr, [facility] Dr [place], unspecified, 120, Mohinder 120, [id number], unspecified Luis [place], [email or web address] weeks MICHELE [place], tel: gestation of [phone]. , [place]. tel: tel: [phone] Associates [facility] Antepartum Walker-0 [place] Referring In Womens hemorrhage, 9-201 Mandie. Provider: key Crystal, 8 700 Mandie Daugherty PO Box second Medical K, 700 1522, trimesterAbnormal [facility], glucose , [facility] Dr [place], complicating 120, Mohinder 120, [id number], [email or web address] weeks Luis [place], gestation of MICHELE, MICHELE, tel: [phone]. , [place]. tel: tel: [phone] Billy [place] Antepartum Walker-0 Daugherty Referring In Womens hemorrhage, 5-201 Mandie. Provider: key Crystal, 8 700 Mandie Daugherty PO Box second Medical K, 700 1522, [email or web address] weeks [facility], gestation of Dr, [facility] Dr [place], 120, Mohinder 120, [id number], Luis [place], [place] MICHELE [place], tel: [phone]. , [place]. tel: tel: [phone] Billy [place] Antepartum Walker-0 Daugherty Referring In Womens hemorrhage, 2-201 Mandie. Provider: key Crystal, 8 700 Mandie Daugherty PO Box second Medical K, 700 1522, [email or web address] weeks [facility], gestation of Dr, [facility] Dr [place], 120, Mohinder 120, [id number], Luis [place], [place] MICHELE [place], tel:[phone]. , [place]. tel: tel: [phone] Billy [place] Antepartum Rajendra-2 Daugherty Referring In Womens hemorrhage, 8-201 Mandie. Provider: key Crystal, 8 700 Mandie Daugherty PO Box second Medical K, 700 1522, [email or web address] weeks Center Kevyn Gutierrez, gestation of Dr, [facility] Center Dr [place], 120, Mohinder 120, [id number], Luis [place], MICHELE [place], tel:+ [phone]. , [place]. tel: tel: [phone] [facility] Matern care for Rajendra-2 [place] Referring In Womens Ultrasound oth or susp poor 8-201 Mandie. Provider: Health CRISTIANO, fetl grth, 2nd 8 Mandie Daugherty PO Box [facility], 700 1522, unspAntepartum Center Kevyn Gutierrez, hemorrhage, , [facility] Dr [place], unspecified, 120, Mohinder 120, [id number], unspecified Luis [place], trimesterObesity MICHELE, MICHELE, tel:+ complicating [phone]. , second , [place]. tel: [email or web address] weeks tel: [phone] gestation of [id number] [facility] Supervision of Rajendra-2 Kindel Referring In Womens other high risk 4-201 Gina. Provider: Pam QUINONEZ, pregnancies, 8 [address] Mandie Farahb PO Box second Arik, , 700 1522, [facility]Matern [facility] [place], Care For Ab[facility]lt [place], Center Dr [place], Fetl Hrt Rate Or [id number] Mohinder 120, [id number], Rhym, Unsp [facility], , [place]. [place], UnspAntepartum tel: MICHELE, tel: hemorrhage, [phone]. unspecified, tel:+ second [phone] trimesterObesity complicating , second trimester [facility] Antepartum Rajendra-2 [place] Referring In Womens hemorrhage, 4-201 Mandie. Provider: Pam QUINONEZ, unspecified, 8 700 Mandie [place]aug[place] PO Box unspecified Medical K, 700 1522, trimester Center Kevyn Gutierrez, , [facility] Center Dr [place], 120, Mohinder 120, [id number], Luis [place], [place] MICHELE [place], tel: [phone]. , [place]. tel: tel: [phone] Billy [place] Encounter for Rajendra-1 Daugherty Referring In Womens suprvsn of normal 4-201 Mandie. Provider: Pam QUINONEZ, , second 8 700 Mandie Daugherty PO Box [email or web address] weeks Medical , 700 1522, gestation of [facility], , [facility] Dr [place], 120, Mohinder 120, [id number], Luis [place], [facility] [place], tel: [phone]. , [place]. tel: tel: [phone] Billy [place] Encounter for May-1 Daugherty Referring In Womens suprvsn of normal 7-201 Mandie. Provider: Pam QUINONEZ, , second 8 700 Mandie Daugherty PO Box [id number] weeks [facility], 700 1522, gestation of [facility], , [facility] Dr [place], 120, Mohinder 120, [id number], Luis [place], [facility], [place], tel:[phone]. , [place]. tel: tel: [phone] Billy [place] Morbid (severe) May-1 Daugherty Referring In Womens Ultrasound obesity due to 7-201 Mandie. Provider: Pam QUINONEZ, excess 8 700 Mandie Daugherty PO Box caloriesMatern [facility], 700 1522, care for oth or [facility], susp poor fetl , [facility] Dr [place], gr, 2nd tri, 120, Mohinder 120, [id number], unspObesity Luis [place], complicating MICHELE, MICHELE, tel: , second [phone]. weeks , [place]. tel: gestation of tel: [phone] Billy [place] Spotting May-0 Daugherty Referring In Womens complicating 2-201 Mandie. Provider: Pam QUINONEZ, , second 8 700 Mandie [place]aug[place] PO Box [email or web address] weeks [facility], 700 1522, gestation of [facility], , [facility] Dr [place], 120, Mohinder 120, [id number], Luis [place], [place] MICHELE [place], tel: [phone]. , [place]. tel: tel: [phone] Billy [place] Matern care for Apr-1 Daugherty Referring In Womens oth or susp poor 2-201 Mandie. Provider: Pam QUINONEZ, fetl grth, 2nd 8 700 Mandie Daug[place] PO Box tri, [email or web address] weeks Medical , 700 1522, [facility] Dr, [facility] Dr [place], 120, Mohinder 120, , Luis [place], [place] MICHELE [place], tel: [phone]. , [place]. tel: tel: [phone] Billy [place] Obesity Mar-0 Daugherty Referring In Womens complicating 9-201 Mandie. Provider: Pam QUINONEZ, , first 8 700 Mandie Daugherty PO Box trimesterEncounte [facility], 700 152, r for suprvsn of [facility], normal , Dr, [facility] Dr [place], first trimester9 120, Mohinder 120, , weeks gestation Luis [place], [place] of MICHELE [place], tel: [phone]. , [place]. tel: tel: [phone] Billy [place] Encounter for Jun-2 Sobbing Referring In Womens suprvsn of normal 3-201 Silas. Provider: Pam QUINONEZ, , first 8 700 Mandie Daugherty PO Box trimester Medical , 700 1522, [facility], [facility], [place] [address] [place], [address] Mohinder [address], , 120, [place], [place] MICHELE [place], tel: MICHELE, [phone]. [phone], tel: [place]. [phone] tel: [phone] Billy [place] MyalgiaRight Dec- Daugherty Referring In Womens lower quadrant 2-201 Mandie. Provider: Pam QUINONEZ, pain 7 700 Mandie [place]aug[place] PO Box Medical , 700 1522, [facility] [place], , [facility] Dr [place], 120, Mohinder 120, , Luis [place], [place] MICHELE [place], tel: [phone]. , [place]. tel: tel:[phone] Billy [place] Morbid (severe) Apr-2 Daughrety Referring In Womens obesity due to Mandie. Provider: Health CRISTIANO, excess 7 700 Mandie Daug[place] PO Box [facility] LaneEncn[facility] Medical K, 700 1522, for conveyor line battery charger exam Center [facility] [place], (general) , [facility] Dr [place], (routine) w 120, Mohinder 120, , abnormal Luis [place], [place] findingsEncounter MICHELE [place], tel: for removal of [phone]. intrauterine , [place]. tel: contraceptive tel:4153 deviceEncounter [id number] for removal of intrauterine contraceptive deviceEncounter for oth general cnsl and advice on procreationBody mass index (BMI) 50-59.9 , adult Associates Luis Morbid (severe) Apr-2 [place] Referring In Womens obesity due to Mandie. Provider: Health CRISTIANO, excess 6 700 Mandie Daugherty PO Box [facility], 700 1522, for conveyor line battery charger exam Center Kevyn Gutierrez, (general) , [facility] Dr [place], (routine) w 120, Mohinder 120, , abnormal Luis [place], [place] findingsPap Smear MICHELE [place], tel: Screening, [phone]. CervixEncounter , [place]. tel: for routine tel: [phone] checking of [id number] intrauterine contracep devBody mass index (BMI) 50-59.9 , adult Associates Luis Dec-2 Oneil Referring In Womens -201 Analy. Provider: Pam QUINONEZ, 4 700 Mandie Daugherty PO Box Medical [facility], 700 1522, Center Kev[address] Dr, [facility] Dr [place], 120, Mohinder 120, , Luis [place], [place] MICHELE [place], tel: [phone]. , [place]. tel: tel: [phone] [place] D[place] In Womens 1-201 Mandie. [employer] [place], 4 700 PO Box Medical [address], [place] [address] Brenda, [facility], 120, [id number], [place], [place], tel:[phone] , [place]. tel: [phone] Family History Family Member Diagnosis Age At [...] Insurance type Covered green party ID Authorization(s) BCBS Out Of State [id number] Prime [id number] [facility] [id number] Medicaid [facility] [id number] Medicaid Social History Type Description Quantity Date Captured Alcohol Use Details No Caffeine Use Details Unknown Tobacco Use Status Unknown Smoking Status Never smoker Vital Signs Date / Height Weight BMI Pulse Blood Temperature Respiratory Body Head BMI Time: Rate Pressure Rate Surface Circumference percentile Area 307.90 52.3 141/2018 lbs 5 mm[Hg] 11:56 kg/m AM eter (2) Chief Complaint And Reason For Visit Unknown [...] Moser BOOKED Appointment Chelsy Moser BOOKED Appointment [place], Chelsy BOOKED Appointment [place], Chelsy BOOKED Appointment [place], Chelsy BOOKED Appointment [place], Chelsy BOOKED Appointment [place], Chelsy BOOKED Appointment [place], Chelys BOOKED Appointment [place], Chelsy BOOKED Appointment [place], Chelsy BOOKED Appointment [place], Chelsy BOOKED Appointment [place], Chelsy BOOKED Appointment [place], Chelsy BOOKED Appointment [place], Chelsy BOOKED Appointment Shanti, Chelsy BOOKED Appointment [place], Chelsy BOOKED Appointment Shanti Chelsy BOOKED Future Order: Radiology Order Complete OB Ultrasound > 14 Weeks Ordered ([id number]) Future Order: Radiology Order Biophysical Profile without NST Ordered ([id number]) Future Order: Radiology Order Biophysical Profile without NST Ordered ([id number]) Future Order: Radiology Order Biophysical Profile without NST Ordered ([id number]) Future Order: Radiology Order Biophysical Profile without NST Ordered ([id number]) Future Order: Radiology Order Biophysical Profile without NST Ordered ([id number]) Future Order: Radiology Order Ultrasound OB Follow-up ([id number]) Ordered Future Order: Radiology Order Biophysical Profile without NST Ordered ([id number]) Date Type Problem Goal Intervention Status Start [...]
--- OUTSIDE RECORDS SUMMARY | 2017-12-05 22:03 | External Medical Summary | Continuity of Care Document ---
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 700 Provider: Health CRISTIANO, Daisy Or Rhym, 8 Medical Mandie Daugherty PO [address] Unsp Tri, Center K, [address] 15[address], UnspAntepartum Dr Mohinder Medical [place], hemorrhage, 120, Center Dr [place], unspecified, Mohinder [place] 120, [id number], second Luis [place] trimesterEncounte [id number] [place], tel:+[phone] r for suprvsn of , [place]. [id number]. [id number] normal , tel: tel: third [id number] [phone] weeks gestation of [facility] Matern Care For Nov- Daugherty Referring In Womens Ultrasound Abnlt Fetl Hrt 9-201 Mandie. Provider: Pam QUINONEZ, Rate Or Rhym, 8 700 Mandie Daugherty PO Box Unsp [facility] Medical , 700 1522, [facility], hemorrhage, Dr, Mohinder Center Dr [place], unspecified, 120, Mohinder 120, [id number], unspecified Luis [place], [place] trimesterObesity MICHELE [place], tel:+ complicating [phone]. , third , [place]. tel: [id number] weeks tel: [phone] gestation of [id number] [facility] Supervision of Sobbing Referring In Womens other high risk 6-201 Silas. Provider: Pam QUINONEZ, pregnancies, 8 700 Mandie Daugherty PO Box [facility], 700 1522, trimesterMatern [facility], Care For Abnlt Drive, [place] Dr [place], Fetl Hrt Rate Or Suite Mohinder 120, [id number], Rhym, Unsp Tri, 120, [place], [place] UnspAntepart MICHELE [place], tel: hemorrhage, [place], [id number]. unspecified, [id number], tel: unspecified US. [id number] trimesterObesity tel: complicating [phone] , second trimester [facility]atern Care For Daugherty Referring In Womens Ultrasound Abnlt Fetl Hrt 6- Mandie. Provider: Pam QUINONEZ, Rate Or Rhym, 8 700 Mandie Daugherty PO Box Unsp [facility] Medical , 700 1522, [facility], hemorrhage, , [facility] Center Dr [place], unspecified, 120, Mohinder 120, [id number], unspecified Luis [place], [place] trimesterObesity MICHELE [place], tel:+ complicating [phone]. , second , [place]. tel: [id number] weeks tel: [phone] gestation of [id number] [facility] Antepartum Nov- Daugherty Referring In Womens hemorrhage, 2-201 Mandie. Provider: Pam QUINONEZ, unspecified, 8 700 Mandie Daugherty PO Box [facility], 700 1522, [facility], glucose , [facility] Dr [place], complicating 120, Mohinder 120, [id number], [id number] weeks Luis [place], gestation of MICHELE [place], tel:+ [phone]. , [place]. tel: tel: [phone] Billy Smith Matern Care For Walker-1 Daugherty Referring In Womens Ultrasound Abnlt Fetl Hrt 2-201 Mandie. Provider: Health PA, Rate Or Rhym, 8 700 Mandie Daugherty PO Box Unsp [facility], 700 1522, UnspAntepartum [facility], hemorrhage, Dr, [facility] Dr [place], unspecified, 120, Mohinder 120, [id number], unspecified Luis [place], [id number] weeks MICHELE [place], tel: gestation of [phone]. , [place]. tel: tel: [phone] Billy Smith Antepartum Walker-0 Daugherty Referring In Womens hemorrhage, 9-201 Mandie. Provider: Health CRISTIANO, unspecified, 8 700 Mandie Daugherty PO Box [facility], 700 1522, [facility], glucose , [facility] Dr [place], complicating 120, Mohinder 120, [id number], [id number] weeks Luis [place], gestation of MICHELE [place], tel: [phone]. , [place]. tel: tel: [phone] Billy Smith Antepartum Walker-0 Daugherty Referring In Womens hemorrhage, 5-201 Mandie. Provider: Health CRISTIANO, unspecified, 8 700 Mandie Daugherty PO Box [facility], 700 1522, [id number] weeks [facility] [place], gestation of Dr, [facility] Dr [place], 120, Mohinder 120, [id number], Luis [place], [place], MICHELE, tel: [phone]. , [place]. tel: tel: [phone] Billy Smith Antepartum Walker-0 Daugherty Referring In Womens hemorrhage, 2-201 Mandie. Provider: Pam QUINONEZ, unspecified, 8 700 Mandie Daugherty PO Box [facility] Medical K, 700 1522, weeks [facility], gestation of , [facility] Dr [place], 120, Mohinder 120, [id number], Luis Smith, MICHELE, MICHELE, tel: [phone]. , [place]. tel: tel: [phone] Billy Smith Rajendra-2 Daugherty In Womens 8-201 Mandie. Pam QUINONEZ, 8 700 PO Box Medical [address], [place], , [facility] MICHELE, 120, [id number], [place], [place], tel:[phone] , [place]. tel: [phone] Billy Smith Antepartum Rajendra-2 Daugherty Referring In Womens hemorrhage, 8-201 Mandie. Provider: Pam QUINONEZ, unspecified, 8 700 Mandie Daugherty PO Box [facility] Medical , 700 1522, weeks [facility], gestation of Dr, [facility] Dr [place], 120, Mohinder 120, [id number], Luis Smith, MICHELE, MICHELE, tel: [phone]. , [place]. tel: tel: [phone] Billy Smith Matern care for Rajendra-2 Daugherty Referring In Womens Ultrasound oth or susp poor 8- Mandie. Provider: Pam QUINONEZ, fetl grth, 2nd 8 700 Mandie Daugherty PO Box [facility], Medical K, 700 1522, unspAntepartum [facility], hemorrhage, Dr, [facility] Dr [place], unspecified, 120, Mohinder 120, [id number], unspecified Luis [place], trimesterObesity [place], MICHELE, tel: complicating [phone]. , second , [place]. tel: [id number] weeks tel: [phone] gestation of [id number] [facility] Supervision of Rajendra-2 Kindel Referring In Womens other high risk 4-201 Gina. Provider: Health CRISTIANO, pregnancies, 8 [address] Mandie Daugherty PO Box second [place], [place], 700 1522, trimesterMatern [place] [facility] [place], Care For Abnlt [place], [place] Dr [place], Fetl Hrt Rate Or [id number] Mohinder 120, [id number], Rhym, Unsp Tri, , [place]. [place], UnspAntepartum tel: MICHELE, tel: hemorrhage, [phone] . unspecified, tel: second [phone] trimesterObesity complicating , second trimester [facility] Antepartum Rajendra-2 Daugherty Referring In Womens hemorrhage, 4-201 Mandie. Provider: Health CRISTIANO, unspecified, 8 700 Mandie Daugherty PO Box unspecified Medical , 700 1522, trimester [place] Kevyn Gutierrez, , [facility] Dr [place], 120, Mohinder 120, , Luis [place], MICHELE, [place], tel:[phone]. , [place]. tel: tel: [phone] Billy Smith Encounter for Rajendra-1 Daugherty Referring In Womens suprvsn of normal 4-201 Mandie. Provider: Health CRISTIANO, , second 8 700 Mandie Daugherty PO Box [id number] weeks Medical K, 700 1522, gestation of [facility] [place], , [facility] Dr [place], 120, Mohinder 120, [id number], Luis [place], MICHELE, MICHELE, tel: [phone]. , [place]. tel: tel: [phone] Billy Smith Encounter for May- Daugherty Referring In Womens suprvsn of normal 7-201 Mandie. Provider: Health CRISTIANO, , second 8 700 Mandie Daugherty PO Box [id number] weeks Medical K, 700 1522, gestation of [facility] [place], , [facility] Dr [place], 120, Mohinder 120, [id number], Luis [place], MICHELE, [place], tel: [phone]. , [place]. tel: tel: [phone] Billy Smith Morbid (severe) May-1 Daugherty Referring In Womens Ultrasound obesity due to 7-201 Mandie. Provider: Health CRISTIANO, excess 8 700 Mandie Daugherty PO Box caloriesMatern [facility], 700 1522, care for oth or [facility] [place], susp poor fetl , [facility] Dr [place], lakshmith, 2nd tri, 120, Mohinder 120, [id number], unspObesity Luis [place], complicating MICHELE, MICHELE, tel: , second [phone]. [id number] weeks , [place]. tel: gestation of tel: [phone] [facility] Spotting May-0 Daugherty Referring In Womens complicating 2-201 Mandie. Provider: Pam QUINONEZ, , second 8 700 Mandie Daugherty PO Box [id number] weeks Medical , 700 1522, gestation of [facility], , [facility] Dr [place], 120, Mohinder 120, , Luis Smith, MICHELE [place], tel: [phone]. , [place]. tel: tel: [phone] Billy Smith Matern care for Apr-1 Daugherty Referring In Womens oth or susp poor 2-201 Mandie. Provider: Pam QUINONEZ, fetl [facility], 2nd 8 700 Mandie Daugherty PO Box tri, [id number] weeks Medical , 700 1522, gestation of [facility], , [facility] Dr [place], 120, Mohinder 120, , Luis [place], [place] MICHELE [place], tel: [phone]. , [place]. tel: tel: [phone] Billy Smith Obesity Mar-0 Daugherty Referring In Womens complicating 9-201 Mandie. Provider: Pam QUINONEZ, , first 8 700 Mandie Daugherty PO Box trimesterEncounte Medical , 700 1522, r for suprvsn of [facility], normal , , [facility] Dr [place], first trimester9 120, Mohinder 120, , weeks gestation Luis [place], [place] of MICHELE [place], tel: [phone]. , [place]. tel: tel: [phone] Associates [facility] Encounter for Jun- Sobbing Referring In Womens suprvsn of normal 3-201 Silas. Provider: Health CRISTIANO, , first 8 700 Mandie Daugherty PO Box trimester Medical , 700 1522, [facility] [place], [facility], [place] Dr [place], Suite Mohinder 120, , 120, [place], [place] MICHELE [place], tel: MICHELE, [phone] 25619, tel: US. [phone] tel: [phone] Associates [facility] MyalgiaRight Dec- Daugherty Referring In Womens lower quadrant 2-201 Mandie. Provider: Pam QUINONEZ, pain 7 700 Mandie Daugherty PO Box Medical , 700 1522, [place] Kevyn Gutierrez, , Moh[address] Dr [place], 120, Mohinder 120, , Luis mSith, [place] MICHELE [place], tel: [phone]. , [place]. tel: tel: [phone] Associates [facility] Morbid (severe) Apr-2 Daugherty Referring In Womens obesity due to 1-201 Mandie. 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 intrauterine , [place]. tel: contraceptive tel: [phone] deviceEncounter [id number] for removal of intrauterine contraceptive deviceEncounter for oth general cnsl and advice on procreationBody mass index (BMI) 50-59.9 , adult [facility] Morbid (severe) Apr-2 Daugherty Referring In Womens obesity due to 9-201 Mandie. 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 [facility] , . tel: for routine tel: [phone] checking of [id number] intrauterine contracep devBody mass index (BMI) 50-59.9 , adult Associates [facility] Oneil Referring In Womens -201 Analy. Provider: [facility], 4 700 Mandie Daugherty PO Box Medical , 700 1522, [place] [address], [facility] Dr [place], 120, Mohinder 120, [id number], Luis Smith, MICHELE, MICHELE, tel: [phone]. , [place]. tel: tel: [phone] Associates [facility] Daugherty In Womens 1-201 Mandie. [facility], 4 700 PO Box Medical 15[address], [place] Dr Brenda, [facility] MICHELE, 120, [id number], Luis MICHELE, tel: [phone] , [place]. tel: [phone] Family History Family Member Diagnosis Age At [...] Provider Payers Payer name Insurance type Covered alliance party ID Authorization(s) [facility] [id number] [employer] Out Of State [id number] [facility] - [id number] Medicaid [facility] [id number] Medicaid Social History Type Description Quantity Date [...] Chelsy Moser BOOKED Appointment Chelsy Moser BOOKED Future Order: Radiology Order Complete OB Ultrasound > 14 Weeks Ordered ([id number]) Future Order: Radiology Order Biophysical Profile without NST Ordered ([id number]) Future Order: Radiology Order Biophysical Profile without NST Ordered ([id number]) Future Order: Radiology Order Biophysical Profile without NST Ordered ([id number]) Future Order: Radiology Order Ultrasound OB Follow-up ([id number]) Ordered Future Order: Radiology Order Biophysical Profile without NST Ordered ([id number]) Date Type Problem Goal Intervention Status Start [...]
--- OUTSIDE RECORDS SUMMARY | 2017-12-05 22:03 | External Medical Summary | Continuity of Care Document ---
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 Provider: Health PA, pregnancies, 8 700 Mandie Daugherty [address] [facility] , 700 1522, trimesterMatern [facility], Care For Abnlt [facility] Dr [place], Fetl Hrt Rate Or Suite Mohinder 120, , Rhym, Unsp Tri, 120, [place], [place] UnspAntepartum [place], tel:+ hemorrhage, [place]LE, [phone]. unspecified, [id number], tel:+ unspecified [place]. [phone] trimesterObesity tel: complicating [phone] , second trimester Billy Smith Matern Care For Daugherty Referring In Womens Ultrasound Abnlt Fetl Hrt - Mandie. Provider: Health PA, Rate Or Rhym, 8 700 Mandie Daugherty PO [address] Unsp Tri, Medical , 700 1522, UnspAntepartum [facility], hemorrhage, Dr, [facility] Dr [place], unspecified, 120, Mohinder 120, [id number], unspecified Luis Smith, [place] trimesterObesity MICHELE [place], tel:+ complicating [phone]. , second , [place]. tel:+[phone] [id number] weeks tel: [phone] gestation of [id number] Associates [facility] Antepartum Walker-1 Daugherty Referring In Womens hemorrhage, 2-201 Mandie. Provider: Pam QUINONEZ, vickiified, 8 700 Mandie Daugherty [address] Box [facility] K, 700 1522, [facility], [facility] Dr [place], complicating 120, Mohinder 120, [id number], [email or web address] weeks Luis [place], [place] gestation of MICHELE [place], tel: [phone]. , [place]. tel: tel: [phone] Billy Smith Matern Care For Walker-1 Daugherty Referring In Womens Ultrasound Abnlt Fetl Hrt 2-201 Mandie. Provider: Pam QUINONEZ, Rate Or Rhym, 8 700 Mandie Daugherty PO Box Unsp [facility] , 700 1522, UnspAntepartum [facility], hemorrhage, Dr, [facility] Dr [place], unspecified, 120, Mohinder 120, [id number], unspecified Luis [place], [place] [id number] weeks MICHELE [place], tel: gestation of [phone]. , [place]. tel: tel: [phone] Billy Smith Antepartum Walker-0 Daugherty Referring In Womens hemorrhage, 9-201 Mandie. Provider: Pam QUINONEZ, vickiified, 8 700 Mandie Daugherty [address] Box [facility] , 700 1522, [facility], [facility] Dr [place], complicating 120, Mohinder 120, [id number] [email or web address] weeks Luis [place], [place] gestation of MICHELE [place], tel: [phone]. , [place]. tel: tel: [phone] Billy Smith Antepartum Walker-0 Daugherty Referring In Womens hemorrhage, 5-201 Mandie. Provider: Pam QUINONEZ, vickiified, 8 700 Mandie Daugherty PO Box [facility] , 700 1522, [id number] weeks [facility], gestation of Dr, [facility] Dr [place], 120, Mohinder 120, , [place], [place], tel:[phone]. , [place]. tel: tel: [phone] Billy Smith Antepartum Walker-0 Daugherty Referring In Womens hemorrhage, 2-201 Mandie. Provider: Pam QUINONEZ, key, 8 700 Mandie Daugherty PO Box [facility], 700 1522, [id number] [facility] Dr, [facility] Dr [place], 120, Mohinder 120, [id number], [place], [place], tel:[phone]. , [place]. tel: tel: [phone] Billy Smith Antepartum Rajendra-2 Daugherty Referring In Womens hemorrhage, 8-201 Mandie. Provider: Pam QUINONEZ, key, 8 700 Mandie Daugherty PO Box [facility], 700 1522, [id number] weeks [facility], gestation of Dr, [facility] Dr [place], 120, Mohinder 120, , Luis Smith, [place] MICHELE, [place]HELE, tel:[phone]. , [place]. tel: tel: [phone] Billy Smith Matern care for Rajendra-2 Daugherty Referring In Womens Ultrasound oth or susp poor 8-201 Mandie. Provider: Pam QUINONEZ, fetpranav [facility], 2nd 8 700 Mandie Daugherty PO Box [facility], 700 1522, unspAntepartum [facility], hemorrhage, Dr, [facility] Dr [place], unspecified, 120, Mohinder 120, , unspecified Luis [place], [place] trimesterObesity [place], tel: complicating [phone]. , second , [place]. tel: [id number] weeks tel: [phone] gestation of [id number] Associates [facility] Rajendra-2 Daugherty Referring In Womens 6-201 Mandie. Provider: Pam QUINONEZ, 8 700 Mandie Daugherty PO Box [facility], 700 1522, [facility], [facility] Dr [place], 120, Mohinder 120, [id number], Luis Smith, [place], [place], tel:[phone]. , [place]. tel: tel: [phone] Billy Moran Supervision of Rajendra-2 Kindel Referring In Womens other high risk 4-201 Gina. Provider: Health CRISTIANO, pregnancies, [address] Mandie Daugherty PO Box second [place], , 700 1522, trimesterMatern [place], [facility] [place], Care For Abnlt [facility] Dr [place], Fetl Hrt Rate Or [id number] Mohinder 120, , Rhym, Unsp Tri, , [place]. [facility] UnspAntepartum tel: MICHELE, tel: hemorrhage, [phone]. unspecified, tel: second [phone] trimesterObesity complicating , second trimester [facility] Antepartum Rajendra-2 Daugherty Referring In Womens hemorrhage, 4-201 Mandie. Provider: Health CRISTIANO, unspecified, 8 700 Mandie Daugherty PO Box unspecified Medical K, 700 1522, trimester Center [address], [facility] Dr [place], 120, Mohinder 120, , [place], [place], tel:[phone]. , [place]. tel: tel: [phone] Billy Smith Encounter for Rajendra-1 Daugherty Referring In Womens suprvsn of normal 4-201 Mandie. Provider: Health CRISTIANO, , second 8 700 Mandie Daugherty PO Box [email or web address] weeks Medical K, 700 1522, gestation of Center Kevyn Gutierrez, Dr, [facility] Dr [place], 120, Mohinder 120, , Luis Smith, [place], [place], tel:[phone]. , [place]. tel: tel: [phone] Billy Smith Encounter for May- Dauhgerty Referring In Womens suprvsn of normal 7-201 Mandie. Provider: Health CRISTIANO, , second 8 700 Mandie Daugherty PO Box [id number] weeks Medical , 700 1522, gestation of [facility], , [facility] Dr [place], 120, Mohinder 120, , Luis Smith, [place], [place], tel: [phone]. , [place]. tel: tel: [phone] Billy Smith Morbid (severe) May-1 Daugherty Referring In Womens Ultrasound obesity due to 7-201 Mandie. Provider: Health PA, excess 8 700 Mandie Daugherty PO Box caloriesMatern Medical , 700 1522, care for oth or [facility], susp poor fetl , [facility] Dr [place], grth, 2nd tri, 120, Mohinder 120, , unspObesity Luis Smith, complicating [place], [place], tel: , second [phone]. [id number] weeks , [place]. tel: gestation of tel: [phone] Billy Smith Spotting May-0 Daugherty Referring In Womens complicating 2-201 Mandie. Provider: Health PA, , second 8 700 Mandie Daugherty PO Box [id number] weeks Medical , 700 1522, gestation of [facility], , [facility] Dr [place], 120, Mohinder 120, , Luis [place], [place], tel: [phone]. , [place]. tel: tel: [phone] Billy Smith Matern care for Apr-1 Daugherty Referring In Womens oth or susp poor 2-201 Mandie. Provider: Health PA, fetl gr, 2nd 8 700 Mandie Daugherty PO Box tri, [id number] weeks [facility], 700 1522, gestation of [facility], , [facility] Dr [place], 120, Mohinder 120, [id number], Luis Smith, [place], [place], tel: [phone]. , [place]. tel: tel: [phone] Billy Smith Obesity Mar-0 Daugherty Referring In Womens complicating 9-201 Mandie. Provider: Health PA, , first 8 700 Mandie Daugherty PO Box [facility], 700 152, r for suprvsn of [facility], normal , , [facility] Dr [place], first trimester9 120, Mohinder 120, , weeks gestation Luis Smith, [place] of MICHELE [place], tel:[phone]. , [place]. tel: tel: [phone] Billy Smith Encounter for Jun-2 Sobbing Referring In Womens suprvsn of normal 3-201 Silas. Provider: Health CRISTIANO, , first 8 700 Mandie Daugherty PO Box [facility] Medical , 152, [facility], [facility] [place] [address] [place], [address], , 120, [place], [place] MICHELE Smith, tel: MICHELE, [phone]. [id number], tel: US. [phone] tel: [phone] Billy Smith MyalgiaRight Aug-2 Daugherty Referring In Womens lower quadrant 2-201 Mandie. Provider: Pam QUINONEZ, pain 7 700 Mandie Daugherty PO Box [facility], 1522, [facility], , [facility] Dr [place], 120, Mohinder 120, , Luis [place], [place] MICHELE [place], tel: [phone]. , [place]. tel: tel: [phone] Billy Smith Morbid (severe) Apr-2 Daugherty Referring In Womens obesity due to 1-201 Mandie. 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 intrauterine , [place]. tel: contraceptive tel: [phone] deviceEncounter [phone] for removal of intrauterine contraceptive deviceEncounter for oth general cnsl and advice on procreationBody mass index (BMI) 50-59.9 , adult [facility] Morbid (severe) Apr-2 Daugherty Referring In Womens obesity due to Mandie. Provider: Pam QUINONEZ, excess 6 700 Mandie Daugherty PO Box caloriesEncntr Medical K, 700 1522, for record center coordinator exam [place] Kevyn Gutierrez, (general) , [facility] Dr [place], (routine) w 120, Mohinder 120, [id number], abnormal Luis Smith, findingsPap Smear MICHELE, MICHELE, tel: Screening, [phone]. CervixEncounter , [place]. tel: for routine tel: [phone] checking of [id number] intrauterine contracep devBody mass index (BMI) 50-59.9 , adult Associates [facility] Oneil Referring In Womens - Analy. Provider: Pam QUINONEZ, 4 700 Mandie Daugherty PO Box Medical K, 700 1522, [place] [address], [facility] Dr [place], 120, Mohinder 120, , Luis Smith, [place], [place], tel: [phone]. , [place]. tel: tel: [phone] Associates [facility] Feb- Daugherty In Womens -201 Mandie. Pam QUINONEZ, 4 700 PO [address] Medical [address], [place] Dr Brenda, [facility] MICHELE, 120, , Luis, [place], tel: [phone] , [place]. tel: [phone] Family History Family Member Diagnosis Age At [...] name Insurance type Covered libertarian ID Authorization(s) Adrienne Wilson [id number] BCBS Out Of State [id number] [facility] - [id number] Medicaid [facility] [id number] Medicaid Social History Type Description Quantity Date [...] Complete OB Ultrasound > 14 Weeks Ordered (09136) Future Order: Radiology Order Biophysical Profile without NST Ordered ([id number]) Future Order: Radiology Order Biophysical Profile without NST Ordered ([id number]) Future Order: Radiology Order Biophysical Profile without NST Ordered ([id number]) Date Type Problem Goal Intervention Status Start [...]
--- OUTSIDE RECORDS SUMMARY | 2017-12-05 22:03 | External Medical Summary | Continuity of Care Document ---
:1985 Author Organization [facility] Address [address] [place], [place] [id number] Phone Care Team Providers Name Role Phone Vicente Knight MD, FAAFP Unavailable Unavailable Allergies, Adverse Reactions, Alerts Substance Reaction Severity Status OXYCODONE HCL Unknown Active Medications Medication Instructions Dosage Effective Dates Status Comments (start - stop) omeprazole 20 mg take 1 capsule by - Active capsule,delayed oral route every release day before a meal citalopram 10 mg take 1 tablet by 10 MG - Active tablet oral route every day Vitamin take 1 tablet by Not Available - Active tablet oral route every day Problems Condition Effective Dates (start - stop) Clinical Status Antepartum hemorrhage, unspecified, - second trimester 25 weeks gestation of - Morbid (severe) obesity due to excess calories 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 Pap Smear Screening, Cervix Encounter for routine checking of intrauterine contracep dev Body mass index (BMI) 50-59.9 , adult Encounter for suprvsn of normal , first trimester Morbid (severe) obesity due to excess - calories Matern care for oth or susp poor fetl - grth, 2nd tri, unsp Obesity complicating , second - trimester 19 weeks gestation of - Morbid (severe) obesity due to excess calories 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 700 Provider: Health PA, Rate Or Rhym, 8 Medical Mandie Daugherty PO [address] Unsp Tri, Center K, 700 1522, UnspAntepartum , [facility] [place], hemorrhage, [address], [address] [place], unspecified, Luis Mohinder 120, [id number], second Luis [place] trimesterEncounte [id number] [place], tel:3162 r for suprvsn of , [place]. [id number]. [id number] normal , tel: tel:[phone] third [id number] [phone] weeks gestation of [facility] Matern Care For Nov- Daugherty Referring In Womens Ultrasound Abnlt Fetl Hrt 9- Mandie. Provider: Health PA, Rate Or Rhym, 8 700 Mandie Daugherty PO [address] Unsp Tri, Medical K, 700 1522, UnspAntepartum [facility], hemorrhage, Dr, Mohinder Center Dr [place], unspecified, 120, Mohinder 120, [id number], unspecified Luis [place], [place] trimesterObesity MICHELE [place], tel: complicating [phone]. , third , [place]. tel: [id number] weeks tel: [phone] gestation of [id number] [facility] Supervision of Sobbing Referring In Womens other high risk - Silas. Provider: Pam QUINONEZ, pregnancies, 8 700 Mandie Daugherty PO Box [facility] Medical , 700 1522, trimesterMatern [facility], Care For Abnlt [address], [place] [address] [place], Fetl Hrt Rate Or [address] Mohinder 120, [id number], Rhym, Unsp Tri, 120, [place], [place] UnspAntepartum MIC[place]LE [place], tel: hemorrhage, [place], [id number]. unspecified, [id number], tel: unspecified US. [phone] trimesterObesity tel: complicating [phone] , second trimester [facility] Matern Care For Nov- Daugherty Referring In Womens Ultrasound Abnlt Fetl Hrt 6- Mandie. Provider: Health PA, Rate Or Rhym, 8 700 Mandie Daugherty PO [address] Unsp Tri, Medical K, 700 1522, [facility], [facility], , [address] [place], unspecified, 120, Mohinder 120, [id number], unspecified Luis [place], [place] trimesterObesity MICHELE [place], tel: complicating [phone]. , second , [place]. tel: [id number] weeks tel: [phone] gestation of [id number] [facility] Antepartum Nov- Daugherty Referring In Womens hemorrhage, 2-201 Mandie. Provider: Pam QUINONZE, unspecified, 8 700 Mandie Daugherty PO Box [facility] Medical , 700 1522, [facility], [facility] Dr [place], complicating 120, Mohinder 120, [id number], [email or web address] weeks Luis [place], gestation of MICHELE [place], tel: [phone]. , [place]. tel: tel: [phone] Billy Smith Matern Care For Walker-1 Daugherty Referring In Womens Ultrasound Abnlt Fetl Hrt 2-201 Mandie. Provider: Pam QUINONEZ, Rate Or Rhym, 8 700 Mandie Daugherty PO Box Unsp [facility] Medical , 700 1522, UnspAntepartum [facility], hemorrhage, , [facility] Dr [place], unspecified, 120, Mohinder 120, [id number], unspecified Luis [place], weeks MICHELE [place], tel: gestation of [phone]. , [place]. tel: tel: [phone] Billy Smith Antepartum Walker-0 Daugherty Referring In Womens hemorrhage, 9-201 Mandie. Provider: Pam QUINONEZ, vickiified, 8 700 Mandie Daugherty PO Box [facility] Medical , 700 1522, [facility], [facility] Dr [place], complicating 120, Mohinder 120, [id number], [id number] weeks Luis [place], gestation of MICHELE [place], tel: [phone]. , [place]. tel: tel: [phone] Billy Smith Antepartum Walker-0 Daugherty Referring In Womens hemorrhage, 5-201 Mandie. Provider: Pam QUINONEZ, vickiified, 8 700 Mandie Daugherty PO Box [facility] Medical K, 700 1522, [email or web address] weeks [facility], gestation of Dr, [facility] Dr [place], 120, Mohinder 120, [id number], Luis [place], [place], tel: [phone]. , [place]. tel: tel: [phone] Billy Smith Antepartum Walker-0 Daugherty Referring In Womens hemorrhage, 2-201 Mandie. Provider: Pam QUINONEZ, unspecified, 8 700 Mandie Daugherty PO Box [facility] Medical , 700 1522, [id number] weeks [facility], gestation of , [facility] Center Dr [place], 120, Mohinder 120, [id number], Lius [place], [place], [place], tel: [phone]. , [place]. tel: tel: [phone] Billy Smith Antepartum Rajendra-2 Daugherty Referring In Womens hemorrhage, 8-201 Mandie. Provider: Pam QUINONEZ, unspecified, 8 700 Mandie Daugherty PO Box [facility] Medical , 700 1522, [id number] weeks [facility], gestation of , [facility] Center Dr [place], 120, Mohinder 120, , Luis [place], MICHELE [place], tel:[phone]. , [place]. tel: tel: [phone] Billy Smith Matern care for Rajendra-2 Daugherty Referring In Womens Ultrasound oth or susp poor 8- Mandie. Provider: Pam QUINONEZ, fetl grth, 2nd 8 700 Mandie Daugherty PO Box [facility], 700 1522, unspAntepartum [facility], hemorrhage, , [facility] Dr [place], unspecified, 120, Mohinder 120, [id number], unspecified Luis [place], trimesterObesity MICHELE [place], tel: complicating [phone]. , second , [place]. tel: [id number] weeks tel: [phone] gestation of [id number] [facility] Supervision of Rajendra-2 Kindel Referring In Womens other high risk 4- Gina. Provider: Pam QUINONEZ, pregnancies, 8 32[address] Mandie Daugherty PO Box [facility], 700 1522, trimesterMatern [facility], Care For Abnlt [place], Center Dr [place], Fetl Hrt Rate Or [id number] Mohinder 120, [id number], Rhym, Unsp Tri, , [place]. [place], UnspAntepartum tel: [place], tel: hemorrhage, [phone]. unspecified, tel: second [phone] trimesterObesity complicating , second trimester [facility] Antepartum Rajendra-2 Daugherty Referring In Womens hemorrhage, 4-201 Mandie. Provider: Pam QUINONEZ, unspecified, 8 700 Mandie Daugherty PO Box unspecified Medical , 700 1522, trimester [facility] [place], , [facility] Dr [place], 120, Mohinder 120, , Luis [place], [place], [place], tel:[phone]. , [place]. tel: tel: [phone] [facility] Encounter for Rajendra-1 Daugherty Referring In Womens suprvsn of normal 4-201 Mandie. Provider: Pam QUINONEZ, , second 8 700 Mandie Daugherty PO Box [email or web address] weeks Medical , 700 1522, [facility], , [facility] Dr [place], 120, Mohinder 120, , Luis [place], [place] MICHELE, MICHELE, tel: [phone]. , [place]. tel: tel: [phone] Billy Smith Encounter for May-1 Daugherty Referring In Womens suprvsn of normal 7-201 Mandie. Provider: Pam QUINONEZ, , second 8 700 Mandie Daugherty PO Box [id number] weeks Medical , 700 1522, [facility], , [facility] Dr [place], 120, Mohinder 120, [id number], Luis [place], [place], [place], tel:[phone]. , [place]. tel: tel: [phone] Billy Smith Morbid (severe) May-1 Daugherty Referring In Womens Ultrasound obesity due to 7-201 Mandie. Provider: Pam QUINONEZ, excess 8 700 Mandie Daugherty PO Box caloriesMatern [facility], 700 1522, care for oth or [facility], susp poor fetl , [facility] Dr [place], grth, 2nd tri, 120, Omhinder 120, [id number], unspObesity Luis [place], complicating MICHELE [place], tel: , second [phone]. weeks , [place]. tel: gestation of tel: [phone] Billy Smith Spotting May-0 Daugherty Referring In Womens complicating 2-201 Mandie. Provider: Health PA, , second 8 700 Mandie Daugherty PO Box [email or web address] weeks Medical , 700 1522, gestation of [facility], , [facility] Dr [place], 120, Mohinder 120, [id number], Luis [place], MICHELE [place], tel: [phone]. , [place]. tel: tel: [phone] Billy Smith Matern care for Apr-1 Daugherty Referring In Womens oth or susp poor 2-201 Mandie. Provider: Health CRISTIANO, fetl jacob, 2nd 8 700 Mandie Daugherty PO Box tri, [email or web address] weeks Medical , 700 1522, gestation of [facility], , [facility] Dr [place], 120, Mohinder 120, [id number], Luis [place], MICHELE [place], tel: [phone]. , [place]. tel: tel: [phone] Billy Smith Obesity Mar-0 Daugherty Referring In Womens complicating 9-201 Mandie. Provider: Health PA, , first 8 700 Mandie Daugherty PO Box trimesterEncounte Medical K, 700 1522, r for suprvsn of [facility] [place], normal , , [facility] Dr [place], first trimester9 120, Mohinder 120, [id number], weeks gestation Luis [place], [place] of MIC[place]LE [place], tel: [phone]. , [place]. tel: tel: [phone] Billy Smith Encounter for Sobbing Referring In Womens suprvsn of normal 3-201 Silas. Provider: Health CRISTIANO, , first 8 700 Mandie Daugherty PO Box trimester Medical , 700 1522, [place] Jennifer Vick, [place] Dr [place], Suite [address] 120, [id number], Zoran, [place], MICHELE Chawla, tel: MICHELE, [phone]. [phone], tel: US. [phone] tel: [phone] Associates Luis MyalgiaRight Daugherty Referring In Womens lower quadrant 2-201 Mandie. Provider: Pam QUINONEZ, pain 7 700 Mandie Daugherty PO Box Medical , 700 1522, [place] [address], [facility] Dr [place], 120, Mohinder 120, , Luis Smith, MICHELE MONSON, tel: [phone]. , [place]. tel: tel: [phone] Billy Smith Morbid (severe) Apr-2 Daugherty Referring In Womens obesity due to 1-201 Mandie. Provider: Pam QUINONEZ, excess 7 700 Mandie Daugherty PO Box caloriesEncntr [facility], 700 1522, for helicopter utility aircrewman exam [facility], (general) , [facility] Dr [place], (routine) w 120, Mohinder 120, , abnormal Luis Smith, findingsEncounter MICHELE [place], tel: for removal of [phone]. intrauterine , [place]. tel: contraceptive tel: [phone] deviceEncounter [id number] for removal of intrauterine contraceptive deviceEncounter for oth general cnsl and advice on procreationBody mass index (BMI) 50-59.9 , adult [facility] Morbid (severe) Apr-2 Daugherty Referring In Womens obesity due to 9-201 Mandie. 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 [facility] , [place]. tel: for routine tel: [phone] checking of [phone] intrauterine contracep devBody mass index (BMI) 50-59.9 , adult [facility] Oneil Referring In Womens -201 Analy. Provider: Health CRISTIANO, 4 700 Mandie Daugherty PO Box Medical K, 700 1522, [place] [address], [facility] [place], 120, Mohinder 120, [id number], Luis [place], [facility], [place], tel: [phone]. , . tel: tel: [phone] [facility] Daugherty In Womens 1-201 Mandie. Health PA, 4 700 PO Box Medical [address], [place] Dr Brenda, Mohinder MICHELE, 120, [id number], [facility] [place], tel: [phone] , . tel: [phone] Family History Family Member Diagnosis Age At [...] party ID Authorization(s) [employer]BS Out Of State [id number] Prime [id number] [facility] - [id number] Medicaid [facility] [id number] Medicaid Social History Type Description Quantity Date Captured Alcohol Use Details No Caffeine Use Details Unknown Tobacco Use Status Unknown Smoking Status Never smoker Vital Signs Date / Height Weight BMI Pulse Blood Temperature Respiratory Body Head BMI Time: Rate Pressure Rate Surface Circumference percentile Area 311.50 52.9 130/85 -2018 lbs 7 mm[Hg] 11:28 kg/m AM eter (2) Chief Complaint And [...] Complete OB Ultrasound > 14 Weeks Ordered ([id number]) Future Order: Radiology Order Biophysical Profile without NST Ordered ([id number]) Future Order: Radiology Order Biophysical Profile without NST Ordered ([id number]) Future Order: Radiology Order Biophysical Profile without NST Ordered ([id number]) Future Order: Radiology Order Ultrasound OB Follow-up ([id number]) Ordered Future Order: Radiology Order Biophysical Profile without NST Ordered ([id number]) Date Type Problem Goal Intervention Status Start [...]
--- OUTSIDE RECORDS SUMMARY | 2017-12-05 22:03 | External Medical Summary | Continuity of Care Document ---
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 700 Provider: Daisy Crystal Or Rhym, 8 Medical Mandie Daugherty [address] Unsp Tri, Center K, 700 1522, UnspAntepartum Mohinder [facility] [place], hemorrhage, 120, [address] [place], unspecified, Luis Mohinder 120, [id number], second Luis [place] trimesterEncounte [id number] MICHELE, tel:[phone] r for suprvsn of , [place]. [id number]. normal , tel: tel: third [phone] weeks gestation of Associates [facility] Matern Care For Nov- Daugherty Referring In Womens Ultrasound Abnlt Fetl Hrt 9- Mandie. Provider: Health PA, Rate Or Rhym, 8 700 Mandie Daugherty PO [address] Unsp Tri, Medical K, 700 1522, [facility], [facility], , [facility] [address] [place], unspecified, 120, Mohinder 120, [id number], unspecified Luis [place], [place] trimesterObesity MICHELE [place], tel: complicating [phone]. , third , [place]. tel: [email or web address] weeks tel: [phone] gestation of [id number] Associates [facility] Supervision of Sobbing Referring In Womens other high risk - Silas. Provider: Health PA, pregnancies, 8 700 Mandie Daugherty PO Box second Medical , 700 1522, trimesterMatern [facility], Care For Abnlt [address], [place] [address] [place], Fetl Hrt Rate Or Suite Mohinder 120, [id number], Rhym, [facility], 120, [place], [place] [facility] MICHELE [place], tel: hemorrhage, MICHELE, [id number]. unspecified, [id number], tel: unspecified US. [phone] trimesterObesity tel: complicating [phone] , second trimester Associates Luis Matern Care For Daugherty Referring In Womens Ultrasound Abnlt Fetl Hrt 6- Mandie. Provider: Health PA, Rate Or Rhym, 8 700 Mandie Daugherty PO [address] Unsp Tri, Medical K, 700 1522, [place], hemorrhage, , [facility] [address] [place], unspecified, 120, Mohinder 120, [id number], unspecified Luis [place], [place] trimesterObesity MICHELE [place], tel: complicating [phone]. , second , [place]. tel: [email or web address] weeks tel: [phone] gestation of [id number] Associates Luis Antepartum Nov-1 Daugherty Referring In Womens hemorrhage, 2-201 Mandie. Provider: Pam QUINONEZ, vickiified, 8 700 Mandie Daugherty PO Box [facility] , 700 1522, [facility], [facility] Dr [place], complicating 120, Mohinder 120, [id number], [email or web address] weeks Luis [place], gestation of MICHELE [place], tel: [phone]. , [place]. tel: tel: [phone] Billy Smith Matern Care For Nov-1 Daugherty Referring In Womens Ultrasound Abnlt Fetl Hrt 2-201 Mandie. Provider: Pam QUINONEZ, Rate Or Rhym, 8 700 Mandie Daugherty PO Box Unsp [facility] Medical , 700 1522, UnspAntepartum [facility], [facility], , [facility] Dr [place], unspecified, 120, Mohinder 120, [id number], unspecified Luis [place], [email or web address] weeks MICHELE, MICHELE, tel: gestation of [phone]. , [place]. tel: tel: [phone] Billy Smith Antepartum Walker-0 Daugherty Referring In Womens hemorrhage, 9-201 Mandie. Provider: Pam QUINONEZ, vickiified, 8 700 Mandie Daugherty PO Box [facility] , 700 1522, [facility] [address], [facility] Dr [place], complicating 120, Mohinder 120, [id number], weeks Luis [place], [place] gestation of MICHELE [place], tel: [phone]. , [place]. tel: tel: [phone] Billy Smith Antepartum Walker-0 Daugherty Referring In Womens hemorrhage, 5-201 Mandie. Provider: Pam QUINONEZ, vickiified, 8 700 Mandie Daugherty PO Box [facility] , 700 1522, [id number] weeks [facility] [place], gestation of Dr, [facility] Dr [place], 120, Mohinder 120, [id number], Luis Smith, [facility], [place], tel: [phone]. , [place]. tel: tel: [phone] Billy Smith Antepartum Nov-0 Daugherty Referring In Womens hemorrhage, 2-201 Mandie. Provider: Pam QUINONEZ, unspecified, 8 700 Mandie Daugherty PO Box [facility], 700 1522, [id number] weeks [facility], gestation of Dr, [facility] Dr [place], 120, Mohinder 120, [id number], Luis Smith, [facility], [place], tel: [phone]. , [place]. tel: tel: [phone] Billy Smith Antepartum Rajendra-2 Daugherty Referring In Womens hemorrhage, 8-201 Mandie. Provider: Pam QUINONEZ, unspecified, 8 700 Mandie Daugherty PO Box [facility], 700 1522, [id number] weeks [facility], gestation of Dr, [facility] Dr [place], 120, Mohinder 120, , Luis Smith, [facility], [place], tel:[phone]. , [place]. tel: tel: [phone] Billy Smith Matern care for Rajendra-2 Daugherty Referring In Womens Ultrasound oth or susp poor 8- Mandie. Provider: Pam QUINONEZ, fetl [facility], 2nd 8 700 Mandie Daugherty PO Box [facility], 700 1522, unspAntepartum [facility], hemorrhage, Dr, [facility] Dr [place], unspecified, 120, Mohinder 120, , unspecified Luis [place], trimesterObesity [place], [place], tel: complicating [phone]. , second , [place]. tel: [email or web address] weeks tel: [phone] gestation of [id number] Associates [facility] Supervision of Rajendra-2 Kindel Referring In Womens other high risk 4-201 Gina. Provider: Pam QUINONEZ, pregnancies, 8 [address] Mandie Daugherty PO Box [facility], 700 1522, trimesterMatern [facility] [place], Care For Abnlt [place], [place] [address] [place], Fetl Hrt Rate Or [id number] Mohinder 120, [id number], Rhym, Unsp [facility], , [place]. [place] Luis UnspAntepartum tel: MICHELE, tel: hemorrhage, [phone]. unspecified, tel: second [phone] trimesterObesity complicating , second trimester Associates [facility] Antepartum Rajendra-2 Daugherty Referring In Womens hemorrhage, 4-201 Mandie. Provider: Health CRISTIANO, unspecified, 8 700 Mandie Daugherty PO Box unspecified Medical K, 700 1522, trimester Center Kevyn Gutierrez, , [facility] Dr [place], 120, Mohinder 120, [id number], Luis Smith, MICHELE, MICHELE, tel: [phone]. , [place]. tel: tel: [phone] Smith Encounter for Rajendra-1 Daugherty Referring In Womens suprvsn of normal 4-201 Mandie. Provider: Health CRISTIANO, , second 8 700 Mandie Daugherty PO Box [id number] weeks Medical K, 700 1522, gestation of [facility] [place], , [facility] Dr [place], 120, Mohinder 120, [id number], Luis Smith, MICHELE [place], tel: [phone]. , [place]. tel: tel: [phone] Smith Encounter for May-1 Daugherty Referring In Womens suprvsn of normal 7-201 Mandie. Provider: Health CRISTIANO, , second 8 700 Mandie Daugherty PO Box [id number] weeks Medical K, 700 1522, gestation of [place] Kevyn Gutierrez, , [facility] Dr [place], 120, Mohinder 120, [id number], Luis [place], MICHELE [place], tel: [phone]. , [place]. tel: tel: [phone] Billy Smtih Morbid (severe) May-1 Daugherty Referring In Womens Ultrasound obesity due to 7-201 Mandie. Provider: Health CRISTIANO, excess 8 700 Mandie Daugherty PO Box caloriesMatern [facility], 700 1522, care for oth or [facility] [place], susp poor fetl , [facility] Dr [place], jacob, 2nd tri, 120, Mohinder 120, [id number], unspObesity Luis [place], complicating MICHELE, MICHELE, tel: , second [phone]. [email or web address] weeks , [place]. tel: gestation of tel: [phone] Billy Smith Spotting May-0 Daugherty Referring In Womens complicating 2-201 Mandie. Provider: Pam QUINONEZ, , second 8 700 Mandie Daugherty PO Box [email or web address] weeks Medical , 700 1522, gestation of [facility], , [facility] Dr [place], 120, Mohinder 120, , Luis Smtih, MICHELE [place], tel:[phone]. , [place]. tel: tel: [phone] Billy Smith Matern care for Apr-1 Daugherty Referring In Womens oth or susp poor 2-201 Mandie. Provider: Pam QUINONEZ, fetl jacob, 2nd 8 700 Mandie Daugherty PO Box tri, [email or web address] weeks Medical , 700 1522, gestation of [facility], , [facility] Dr [place], 120, Mohinder 120, , Luis Smith, MICHELE [place], tel: [phone]. , [place]. tel: tel: [phone] Billy Smith Obesity Mar-0 Daugherty Referring In Womens complicating 9-201 Mandie. Provider: Pam QUINONEZ, , first 8 700 Mandie Daugherty PO Box trimesterEncounte [facility], 700 1522, r for suprvsn of [facility], normal , , [facility] Dr [place], first trimester9 120, Mohinder 120, [id number], weeks gestation Lusi [place], [place] of MICHELE [place], tel:[phone]. , [place]. tel: tel: [phone] Associates Luis Encounter for Feb-2 Sobbing Referring In Womens suprvsn of normal 3-201 Silas. Provider: Pam QUINONEZ, , first 8 700 Mandie Daugherty PO Box trimester Medical , 700 1522, [facility] [place], [facility], Center Dr [place], Suite Mohinder 120, , 120, [place], [place] MICHELE Smith, tel: MICHELE, [phone] [phone], tel: US. [phone] tel: [phone] Associates Luis MyalgiaRight Aug-2 Daugherty Referring In Womens lower quadrant 2-201 Mandie. Provider: Pam QUINONEZ, pain 7 700 Mandie Daugherty PO Box Medical , 700 1522, [facility] [place], , [facility] [address] [place], 120, Mohinder 120, , Luis [place], [place] MICHELE, MICHELE, tel: [phone]. , [place]. tel: tel: [phone] Associates Luis Morbid (severe) Apr-2 Daugherty Referring In Womens obesity due to 1-201 Mandie. 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 intrauterine , [place]. tel: contraceptive tel: [phone] deviceEncounter [id number] for removal of intrauterine contraceptive deviceEncounter for oth general cnsl and advice on procreationBody mass index (BMI) 50-59.9 , adult Associates Luis Morbid (severe) Apr-2 Daugherty Referring In Womens obesity due to 9-201 Mandie. 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 [facility] , . tel: for routine tel: [phone] checking of [phone] intrauterine contracep devBody mass index (BMI) 50-59.9 , adult Associates Luis Oneil Referring In Womens -201 Analy. Provider: Health CRISTIANO, 4 700 Mandie Daugherty PO Box Medical K, 700 1522, [place] [address], [facility] Dr [place], 120, Mohinder 120, [id number], Luis Smith, MICHELE, MICHELE, tel: [phone]. , . tel: tel: [phone] Associates Luis Daugherty In Womens 1-[address] [facility] CRISTIANO, 4 700 PO Box Medical [address], [place] Dr Brenda, [facility] MICHELE, 120, [id number], [facility] [place], tel: [phone] , . tel: [phone] Family History Family Member Diagnosis Age At [...] Insurance type Covered alliance party ID Authorization(s) BCBS Out Of State [id number] Prime [id number] [facility] [id number] Medicaid [facility] [id number] Medicaid Social History Type Description Quantity Date Captured Alcohol Use Details No Caffeine Use Details Unknown Tobacco Use Status Unknown Smoking Status Never smoker Vital Signs Date / Height Weight BMI Pulse Blood Temperature Respiratory Body Head BMI Time: Rate Pressure Rate Surface Circumference percentile Area 309.80 52.6 134/80 -2018 lbs 8 mm[Hg] 1:26 kg/m PM eter (2) Chief Complaint And Reason For [...] Complete OB Ultrasound > 14 Weeks Ordered ([id number]) Future Order: Radiology Order Biophysical Profile without NST Ordered ([id number]) Future Order: Radiology Order Biophysical Profile without NST Ordered ([id number]) Future Order: Radiology Order Biophysical Profile without NST Ordered ([id number]) Future Order: Radiology Order Ultrasound OB Follow-up ([id number]) Ordered Future Order: Radiology Order Biophysical Profile without NST Ordered ([id number]) Date Type Problem Goal Intervention Status Start [...]
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
--- OUTSIDE RECORDS SUMMARY | 2017-12-05 22:03 | External Medical Summary | Continuity of Care Document ---
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 Provider: Health PA, pregnancies, 8 700 Mandie Daugherty [address] [facility] , [address] 1522, trimesterMatern [facility], Care For Abnlt [facility] Dr [place], Fetl Hrt Rate Or [address], [id number], Rhym, Unsp Tri, 120, [place], [place] [facility] [place], [place], tel:+[phone] hemorrhage, [place], [phone]. [id number] unspecified, [id number], tel:[phone] unspecified [place]. [phone] trimesterObesity tel: complicating [phone] , second trimester Billy Smith Matern Care For Daugherty Referring In Womens Ultrasound Abnlt Fetl Hrt - Mandie. Provider: Health PA, Rate Or Rhym, 8 700 Mandie Daugherty [address] Unsp Tri, Medical K, 700 1522, [facility], hemorrhage, Dr, [address] Dr [place], unspecified, 120, Mohinder 120, [id number], unspecified Luis Smith, trimesterObesity MICHELE BAUT[place]A, tel:[phone] complicating [phone]. , second , [place]. tel: [email or web address] weeks tel: [phone] gestation of [id number] Associates [facility] Antepartum Walker-1 Daugherty Referring In Womens hemorrhage, 2-201 Mandie. Provider: key Crystal, 8 700 Mandie Daugherty [address] [facility], 700 1522, [facility]Ab[facility], [facility] [place], complicating 120, Mohinder 120, [id number], [id number] weeks Luis [place], [place] gestation of MICHELE BAUTISTA, tel: [phone]. , [place]. tel: tel: [phone] [facility] Matern Care For Walker-1 Daugherty Referring In Womens Ultrasound Abnlt Fetl Hrt 2-201 Mandie. Provider: Pam QUINONEZ, Rate Or Rhym, 8 700 Mandie Daugherty [facility] 700 1522, UnspAntepartum [facility], , [facility] [place], unspecified, 120, Mohinder 120, [id number], unspecified Luis [place], [place] [email or web address] weeks MICHELE MICHELE, tel: gestation of [phone]. , [place]. tel: tel: [phone] [facility] Antepartum Walker-0 Daugherty Referring In Womens hemorrhage, 9-201 Mandie. Provider: key Crystal, 8 700 Mandie Daugherty [address] [facility] , 700 1522, [facility] [place], complicating 120, Mohinder 120, [id number], [email or web address] weeks Luis [place], [place] gestation of MICHELE [place], tel: [phone]. , [place]. tel: tel: [phone] [facility] Antepartum Walker-0 Daugherty Referring In Womens hemorrhage, 5-201 Mandie. Provider: key Crystal, 8 700 Mandie Daugherty PO [address] [facility], 700 1522, [id number] weeks [facility], gestation of Dr, [facility] Dr [place], 120, Mohinder 120, [id number], [place], [place], [place], tel: [phone]. , [place]. tel: tel: [phone] Billy Smith Antepartum Nov-0 Daugherty Referring In Womens hemorrhage, 2-201 Mandie. Provider: Pam QUINONEZ, key, 8 700 Mandie Daugherty PO [address] [facility], 700 1522, [email or web address] weeks [facility], gestation of Dr, [facility] Dr [place], 120, Mohinder 120, [id number], [place], [place], [place], tel:[phone]. , [place]. tel: tel: [phone] Smith Antepartum Oct- Daugherty Referring In Womens hemorrhage, 8-201 Mandie. Provider: Pam QUINONEZ, key, 8 700 Mandie Daugherty [address] [facility], 700 1522, [email or web address] weeks [facility], gestation of Dr, [facility] Dr [place], 120, Mohinder 120, [id number], [place], [place], [place], tel:[phone]. , [place]. tel: tel: [phone] Billy Smith Matern care for Oct- Daugherty Referring In Womens Ultrasound oth or susp poor 8- Mandie. Provider: benjamin Crystall jacob, 2nd 8 700 Mandie Daugherty PO Box [facility], 700 1522, unspAntepartum [facility], hemorrhage, Dr, [facility] Dr [place], unspecified, 120, Mohinder 120, [id number], unspecified [place], [place] trimesterObesity [place], MICHELE, tel: complicating [phone]. , second , [place]. tel: [email or web address] weeks tel: [phone] gestation of [id number] Initial Associates [facility] Supervision of [facility] Referring hospital In Womens other high risk 4-201 Gina. Provider: bart [facility] Health CRISTIANO, pregnancies, [address] Mandie Daugherty PO [address] second Arik, , 700 1522, [facility]Matern [facility] [place], Care For Ab[place]lt [place], [place] [address] [place], Fetl Hrt Rate Or [id number] [address]inder 120, [id number], Rhym, Unsp Tri, , [place]. Luis UnspAntepartum tel: MICHELE, tel: hemorrhage, [phone] . unspecified, tel: second [phone] trimesterObesity complicating , second trimester [facility] Antepartum Rajendra-2 Daugherty Referring In Womens hemorrhage, 4-201 Mandie. Provider: Pam QUINONEZ, unspecified, 8 700 Mandie Daugherty PO Box unspecified Medical , 700 1522, trimester Center Kevyn Gutierrez, , [facility] [place], 120, Mohinder 120, , Luis Smith, MICHELE [place], tel:[phone]. , [place]. tel: tel: [phone] [facility] Encounter for Rajendra-1 Daugherty Referring In Womens suprvsn of normal 4-201 Mandie. Provider: Pam QUINONEZ, , second 8 700 Mandie Daugherty PO Box [id number] weeks Medical , 700 1522, gestation of [facility] [place], , [facility] [place], 120, Mohinder 120, [id number], Luis Smith, MICHELE [place], tel:[phone]. , [place]. tel: tel: [phone] Billy Smith Encounter for May-1 Daugherty Referring In Womens suprvsn of normal 7-201 Mandie. Provider: Pam QUINONEZ, , second 8 700 Mandie Daugherty PO Box [email or web address] weeks Medical , 700 1522, gestation of [facility], , [facility] [place], 120, Mohinder 120, [id number], Luis Smith, MICHELE [place], tel:[phone]. , [place]. tel: tel: [phone] [facility] Morbid (severe) May-1 Daugherty Referring In Womens Ultrasound obesity due to 7-201 Mandie. Provider: Pam QUINONEZ, excess 8 700 Mandie Daugherty PO Box caloriesMatern Medical , 700 1522, care for oth or [facility], susp poor fetl , [facility] [place], grth, 2nd tri, 120, Mohinder 120, , unspObesity Luis Smith, complicating MICHELE BAUTISTA, tel: , second [phone]. [email or web address] weeks , [place]. tel: gestation of tel: [phone] [facility] Spotting May-0 Daugherty Referring In Womens complicating 2-201 Mandie. Provider: Pam QUINONEZ, , second 8 700 Mandie Daugherty PO Box [email or web address] weeks [facility], 700 1522, gestation of [facility], , [facility] [place], 120, Mohinder 120, , Luis Smith, MICHELE [place], tel: [phone]. , [place]. tel: tel: [phone] Billy Smith Matern care for Apr-1 Daugherty Referring In Womens oth or susp poor 2-201 Mandie. Provider: Pam QUINONEZ, fetl [facility], 2nd 8 700 Mandie Daugherty PO Box tri, [email or web address] weeks [facility], 700 1522, gestation of [facility], , [facility] Dr [place], 120, Mohinder 120, [id number], Luis Smith, MICHELE [place], tel: [phone]. , [place]. tel: tel: [phone] Billy Smith Obesity Mar-0 Daugherty Referring In Womens complicating 9-201 Mandie. Provider: Pam QUINONEZ, , first 8 700 Mandie Daugherty PO Box trimesterEncounte Medical , 700 1522, r for suprvsn of [facility], normal , , [facility] [place], first trimester9 120, Mohinder 120, , weeks gestation Luis [place], [place] of MICHELE [place], tel:[phone]. , [place]. tel: tel: [phone] [facility] Encounter for Jun- Sobbing Referring In Womens suprvsn of normal 3-201 Silas. Provider: Health CRISTIANO, , first 8 700 Mandie Daugherty PO Box [facility], 700 1522, [facility], [facility], [address] [place], [address], , 120, [place], [place] MICHELE Smith, tel: MICHELE, [phone]. [phone] [address]055, tel: US. [phone] tel: [phone] [facility] MyalgiaRight Dec- Daugherty Referring In Womens lower quadrant 2-201 Mnadie. Provider: Health CRISTIANO, pain 7 700 Mandie Daugherty PO Box [facility], 700 1522, [place] [address], [facility] Dr [place], 120, Mohinder 120, , Luis [place], [place] MICHELE [place], tel:[phone]. , [place]. tel: tel: [phone] Billy Smith Morbid (severe) Apr-2 Daugherty Referring In Womens obesity due to 1-201 Mandie. Provider: Health CRISTIANO, excess 7 700 Mandie Daugherty PO Box caloriesEncntr [facility], 700 1522, for drug safety scientist exam [facility] [place], (general) , [facility] [place], (routine) w 120, Mohinder 120, , abnormal Luis [place], [place] findingsEncounter MICHELE [place], tel: for removal of [phone]. intrauterine , [place]. tel: contraceptive tel: [phone] deviceEncounter [phone] for removal of intrauterine contraceptive deviceEncounter for oth general cnsl and advice on procreationBody mass index (BMI) 50-59.9 , adult [facility] Morbid (severe) Apr-2 Daugherty Referring In Womens obesity due to 9-201 Mandie. Provider: Health CRISTIANO, excess 6 700 Mandie Daugherty PO Box caloriesEncntr Medical K, 700 1522, for drug safety scientist exam Center Kevyn Gutierrez (general) , [facility] Center Dr [place], (routine) w 120, Mohinder 120, [id number], abnormal Luis Smith, findingsPap Smear MICHELE, MICHELE, tel: Screening, [phone]. CervixEncounter , [place]. tel: for routine tel: [phone] checking of [id number] intrauterine contracep devBody mass index (BMI) 50-59.9 , adult Associates Luis Oneil Referring In Womens 4-201 Analy. Provider: Pam QUINONEZ, 4 700 Mandie Farahb PO Box Medical K, 700 1522, Center [address], [facility] Dr [place], 120, Mohinder 120, [id number], Luis [place], [place], [place], tel: [phone]. , [place]. tel: tel: [phone] [facility] Daugherty In Womens 1-201 Mandie. Pam QUINONEZ, 4 700 [address] Medical [address], [place] [address] Brenda, [facility] MICHELE, 120, , [facility] [place], tel: [phone] , . tel: [phone] Family History Family Member Diagnosis Age At [...] Provider Payers Payer name Insurance type Covered democrat ID Authorization(s) BCBS Out Of State [id number] [facility] [id number] [facility] [id number] Medicaid [facility] [id number] Medicaid Social History Type Description Quantity Date [...] Complete OB Ultrasound > 14 Weeks Ordered (47466) Future Order: Radiology Order Biophysical Profile without NST Ordered ([id number]) Future Order: Radiology Order Biophysical Profile without NST Ordered ([id number]) Future Order: Radiology Order Biophysical Profile without NST Ordered ([id number]) Date Type Problem Goal Intervention Status Start [...]
--- OUTSIDE RECORDS SUMMARY | 2017-12-05 22:04 | External Medical Summary | Continuity of Care Document ---
:1987 Author Organization [facility] Address [address] [place], [place] [id number] Phone Care Team Providers Name Role Phone Vicente Knight MD, FAAFP Unavailable Unavailable Allergies, Adverse Reactions, Alerts Substance Reaction Severity Status No Known Drug Allergies Unknown Active Medications Medication Instructions Dosage Effective Dates Status Comments (start - stop) PRISTIQ ER 100 MG TAKE ONE TABLET BY 100 MG - Active TABLET MOUTH DAILY citalopram 10 mg take 1 tablet by oral 10 MG - Active tablet route every day Problems Condition Effective Dates (start - stop) Clinical Status Myalgia Right lower quadrant pain Morbid (severe) obesity due to excess calories Body mass index (BMI) 50-59.9 , adult 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) w abnormal findings Pap Smear Screening, Cervix Encounter for routine checking of intrauterine contracep dev Morbid (severe) obesity due to excess calories 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) w abnormal findings Encounter for removal of intrauterine - contraceptive device Encounter for removal of intrauterine contraceptive device Encounter for ot general cnsl and advice on procreation Body mass index (BMI) 50-59.9 , adult IUD Surveillance - Active Active Procedures Procedure Date Office/outpatient visit,est, mod Results Test Name Date and Time Measure Units Reference Range Abnormal Flag Comments Unknown Advance Directives Directive Yes / No Effective Date File Name Unknown Encounters Encounter Practice Location Reason(s) Diagnoses Date Provider Care Team Description For Visit Members Office/outpat [facility] cramping MyalgiaRight lower Daugherty Referring ient In [employer] (chief quadrant pain 2-201 Mandie. Provider: visit,est, Health PA, complaint) 7 700 Mandie Daugherty mod PO Box Medical K, 700 1522, [address], [facility] Dr [place], 120, Mohinder 120, , Luis Smith, MICHELE, MICHELE, tel: [phone]. , [place]. tel: tel: [phone] Billy Smith Morbid (severe) Apr-2 Daugherty Referring In Womens obesity due to Mandie. Provider: Health PA, excess 7 700 Mandie Daugherty PO Box caloriesEncntr for Medical K, 700 1522, feed manager exam (general) [facility], (routine) w , [facility] Dr BA[place], abnormal 120, Mohinder 120, , findingsEncounter Luis [place], for removal of [place], [place], tel: intrauterine [phone]. contraceptive , [place]. tel: deviceEncounter tel: [phone] for removal of [id number] intrauterine contraceptive deviceEncounter for oth general cnsl and advice on procreationBody mass index (BMI) 50-59.9 , adult [facility] Morbid (severe) Apr-2 Daugherty Referring In Womens obesity due to Mandie. Provider: Health CRISTIANO, excess 6 700 Mandie Daugherty PO Box caloriesBody mass Medical K, 700 1522, index (BMI) [facility] Brenda, 50-59.9 , , [facility] Dr BAUT[place], adultEncntr for 120, Mohinder 120, , feed manager exam (general) [place], [place] (routine) w MICHELE BAUTISTA, tel: abnormal [phone]. findingsPap Smear , [place]. tel: Screening, tel: [phone] CervixEncounter [phone] for routine checking of intrauterine contracep dev [facility] Mar-2 Daugherty In Womens 8- Mandie. Health CRISTIANO, 6 700 [address] Medical [address], Center Dr Brenda, Mohinder [place], 120, [id number], [place], tel: [phone] , [place]. tel: [phone] Billy Smith Apr- Oneil Referring In Womens 4-201 Analy. Provider: Health PA, 4 700 Mandie Daugherty PO Box Medical K, 700 1522, [address], [facility] [place], 120, Mohinder 120, [id number], [place], [place], [place], tel:+ [phone]. , [place]. tel: tel: [phone] Billy Smith Feb- Daugherty In Womens 1-201 Mandie. Health PA, 4 700 [address] Medical [address], [address] Brenda, [facility] [place], 120, [id number], [facility] [place], tel:[phone] , [place]. tel: [phone] Billy Smith Nov- Daugherty In Womens 5-201 Mandie. Health PA, 4 700 [address] Medical [address], [address] Brenda, [facility] [place], 120, [id number], [facility] [place], tel:[phone] , [place]. tel: [phone] Family History Family Member Diagnosis Age At Onset No family history of Stroke No family history of Kidney Problems No family history of Osteoporosis No family history of Epilepsy No family history of Hypertension No family history of Uterine Cancer No [...] name Insurance type Covered libertarian ID Authorization(s) BCBS Out Of State BL [id number] [facility] [id number] Medicaid [facility] [id number] Medicaid Social History Type Description Quantity Date Captured Alcohol Use Details Unknown Caffeine Use Details Unknown Tobacco Use Status Unknown Smoking Status Never smoker Vital Signs Date / Height Weight BMI Pulse Blood Temperature Respiratory Body Head BMI Time: Rate Pressure Rate Surface Circumference percentile Area 337.70 75 133/81 -2017 lbs /min mm[Hg] 3:40 PM Chief Complaint And Reason For Visit Most recent encounter only, dated '12/31/2016 15:10'. cramping (chief complaint). Description: We removed her Mirena in August 2016 to try for . Her menses have been regular and normal. The last couple months, she& amp;#39;s had cramping between menses that comes and goes. Sometimes it' s RLQ, LLQ, or lower pelvis that shoots down into the vagina. No dyspareunia. No bowel or bladder complaints. She has more pain with movement. Today she has mild RLQ pain. She has her normal low back pain. Reason For Referral Reason For Referral Unknown Plan Of Care Date Type Action Status Goal Lifestyle education regarding diet completed Goal Lifestyle education regarding diet completed Date Type Problem Goal Intervention Status Start Date Unknown. History Of Present Illness Encounter Date Complaint History Of Present Illness cramping We removed her Mirena in August 2016 to try for . Her menses have been regular and normal. The last couple months, she's had cramping between menses that comes and goes. Sometimes it's RLQ, LLQ, or lower pelvis that shoots down into the vagina. No dyspareunia. No bowel or bladder complaints. She has more pain with movement. Today she has mild RLQ pain. She has her normal low back pain. Functional Status Encounter Date Functional Assessment Cognitive Assessment Unknown Medications Administered Medication Instructions Dosage Effective Dates (start - stop) Status Comments Drug Treatment Unknown Instructions Date Instruction Additional Information Giving encouragement to exercise Related to Body mass index 50.0-59.9 Lifestyle education regarding diet Related to Body mass index 50.0-59.9 Giving encouragement to exercise Related to Body mass index 50.0-59.9 Lifestyle education regarding diet Related to Body mass index 50.0-59.9 HIV and other routine tests risk factors identified by history anticipated course of care nutrition and weight gain counseling, special diet toxoplasmosis precautions (cats / raw meat) exercise environmental / work hazards travel tobacco (ask, advise, assess, assist and arrange) alcohol illicit / recreational drugs use of any medications (including supplements, vitamins, herbs, OTC drugs) smoking counseling domestic violence seat belt use childbirth classes / hospital facilities genetic testing dentist
--- OUTSIDE RECORDS SUMMARY | 2017-12-05 22:04 | External Medical Summary | Continuity of Care Document ---
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 Provider: visit,est, Health PA, complaint) 7 700 Mandie Daugherty mod PO Box Medical K, 700 1522, Center [address], [facility] Dr [place], 120, [place] 120, [id number], [place], [place], [place], tel: [phone]. , [place]. tel: tel: [phone] [facility] Morbid (severe) Apr-2 Daugherty Referring In Womens obesity due to - Mandie. Provider: Health PA, excess 7 700 Mandie Daugherty PO Box caloriesEncntr for Medical K, 700 1522, valve tester exam (general) [facility], (routine) w , [facility] Dr [place], abnormal 120, Mohinder 120, , findingsEncounter Luis [place], for removal of [place], [place], tel: intrauterine [phone]. contraceptive , [place]. tel: deviceEncounter tel: [phone] for removal of [id number] intrauterine contraceptive deviceEncounter for oth general cnsl and advice on procreationBody mass index (BMI) 50-59.9 , adult [facility] Morbid (severe) Apr-2 Daugherty Referring In Womens obesity due to Mandie. Provider: Health CRISTIANO, excess 6 700 Mandie Daugherty PO Box caloriesEncntr for Medical K, 700 1522, valve tester exam (general) [facility] Brenda, (routine) w , [facility] Dr [place], abnormal 120, Mohinder 120, , findingsPap Smear Luis Smith, Screening, [place], [place], tel: CervixEncounter [phone]. for routine , [place]. tel: checking of tel: [phone] intrauterine [phone] contracep devBody mass index (BMI) 50-59.9 , adult Associates Luis Mar-2 Daugherty In Womens 8- Mandie. Health CRISTIANO, 6 700 [address] Medical [address], [address] Brenda, Mohinder [place], 120, [id number], [place], [place], tel: [phone] , [place]. tel: [phone] Billy Smith Apr- Oneil Referring In Womens 4-201 Analy. Provider: Health PA, 4 700 Mandie Daugherty PO Box Medical K, 700 1522, [place] [address], [facility] [place], 120, Mohinder 120, [id number], [place], [place], [place], tel:+ [phone]. , [place]. tel: tel: [phone] Billy Smith Feb- Daugherty In Womens 1-201 Mandie. Health PA, 4 700 [address] Medical [address], [address] Brenda, [facility] [place], 120, [id number], [facility] [place], tel:[phone] , [place]. tel: [phone] Billy Smith Nov- Daugherty In Womens 5-201 Mandie. Health PA, 4 700 [address] Medical [address], [address] Brenda, [facility] [place], 120, [id number], [facility] [place], tel:[phone] , [place]. tel: [phone] Family History Family Member Diagnosis Age At [...] party ID Authorization(s) BCBS Out Of State BL [id number] [facility] [id number] Medicaid [facility] [id number] Medicaid Social History Type Description Quantity Date [...]
--- OUTSIDE RECORDS SUMMARY | 2017-12-05 22:04 | External Medical Summary | Continuity of Care Document ---
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 Provider: Pam QUINONEZ, vickiified, 8 700 Mandie Daugherty [address] [facility] K, [address] [facility] [address], [facility] [address] [place], complicating 120, Mohinder 120, [id number], [email or web address] weeks [place], gestation of MICHELE [place], tel:+ [phone]. , [place]. tel: tel: [phone] Billy Smith Matern Care For Nov-1 Daugherty Referring In Womens Ultrasound Abnlt Fetl Hrt 2-201 Mandie. Provider: Pam QUINONEZ, Rate Or Rhym, 8 700 Mandie Daugherty PO Box Unsp [facility] Medical K, 700 1522, UnspAntepartum [facility] kimani Gutierrez, , [facility] Dr [place], unspecified, 120, Mohinder 120, [id number], unspecified [place], [id number] weeks MICHELE [place], tel: gestation of [phone]. , [place]. tel: tel: [phone] Billy Smith Antepartum Walker-0 Daugherty Referring In Womens hemorrhage, 9-201 Mandie. Provider: Pam QUINONEZ, key, 8 700 Mandie Daugherty PO Box [facility] Medical K, 700 1522, [facility] [address], [facility] Dr [place], complicating 120, Mohinder 120, [id number], [email or web address] weeks [place], [place] gestation of MICHELE [place], tel: [phone]. , [place]. tel: tel: [phone] Billy Smith Antepartum Walker-0 Daugherty Referring In Womens hemorrhage, 5-201 Mandie. Provider: key Crystal, 8 700 Mandie Daugherty PO Box [facility] K, 700 1522, [email or web address] [address] [facility] [place], gestation of , [facility] Dr [place], 120, Mohinder 120, [id number], [place] Smith, MICHELE [place], tel:+ [phone]. , [place]. tel: tel: [phone] Smith Antepartum Walker-0 Daugherty Referring In Womens hemorrhage, 2-201 Mandie. Provider: key Crystal, 8 700 Mandie Daugherty PO Box [facility] Medical K, 700 1522, [email or web address] weeks [facility] [place], gestation of Dr, [facility] Dr [place], 120, Mohinder 120, , Luis Smith, MICHELE, MICHELE, tel:+ [phone]. , [place]. tel: tel: [phone] Smith Antepartum Rajendra-2 Daugherty Referring In Womens hemorrhage, 8-201 Mandie. Provider: key Crystal, 8 700 Mandie Daugherty PO Box [facility] , 700 1522, [email or web address] weeks [facility] [place], gestation of Dr, [facility] Dr [place], 120, Mohinder 120, [id number], Luis Smith, MICHELE, MICHELE, tel:+ [phone]. , [place]. tel: tel: [phone] Billy Smith Matern care for Rajendra-2 Daugherty Referring In Womens Ultrasound oth or susp poor 8-201 Mandie. Provider: Pam QUINONEZ, fetl grth, 2nd 8 700 Mandie Daugherty PO Box [facility], Medical K, 700 1522, unspAntepartum [facility] [place], hemorrhage, , [facility] Dr [place], unspecified, 120, Mohinder 120, [id number], vickiified Luis [place], trimesterObesity MICHELE [place], tel:[phone] complicating [phone]. , second , [place]. tel: [email or web address] weeks tel: [phone] gestation of [id number] [facility] Dean Rajendra-2 Daugherty In Womens 5-201 Mandie. [facility], 8 700 PO [address] Medical [address], [place] [address] Brenda, [facility] MICHELE, 120, [id number], [place], [place], tel:[phone] , [place]. tel: [phone] [facility] Supervision of Rajendra-2 Kindel Referring In Womens other high risk 4-201 Gina. Provider: Health CRISTIANO, pregnancies, [address] Mandie Daugherty PO Box second Arik, [place], 700 1522, trimesterMatern [place], [facility] [place], Care For Abnlt [place], [place] [address] [place], Fetl Hrt Rate Or [id number] Mohinder 120, , Rhym, Unsp Tri, , [place]. [place], UnspAntepartum tel: [place], tel: hemorrhage, [phone] . unspecified, tel: second [phone] trimesterObesity complicating , second trimester [facility] [place] Antepartum Rajendra-2 Daugherty Referring In Womens hemorrhage, 4-201 Mandie. Provider: Health CRISTIANO, unspecified, 8 700 Mandie Daugherty PO Box unspecified Medical K, 700 1522, trimester Center [address], [facility] Dr [place], 120, Mohinder 120, , [place], MICHELE, [place], tel: [phone]. , [place]. tel: tel: [phone] Billy Smith Encounter for Rajendra-1 Daugherty Referring In Womens suprvsn of normal 4-201 Mandie. Provider: Health CRISTIANO, , second 8 700 Mandie Daugherty PO Box [id number] weeks Medical K, 700 1522, gestation of [place] Kevyn Gutierrez, , [facility] Dr [place], 120, Mohinder 120, [id number], [place], [facility], [place], tel: [phone]. , [place]. tel: tel: [phone] Smith Encounter for September- Daugherty Referring In Womens suprvsn of normal 7-201 Mandie. Provider: Health CRISTIANO, , second 8 700 Mandie Daugherty PO Box [email or web address] weeks Medical , 700 1522, gestation of [facility], , [facility] Dr [place], 120, Mohinder 120, [id number], [place], [place]HELE, [place], tel: [phone]. , [place]. tel: tel: [phone] Billy Smith Morbid (severe) May-1 Daugherty Referring In Womens Ultrasound obesity due to 7-201 Mandie. Provider: Health CRISTIANO, excess 8 700 Mandie Daugherty PO Box caloriesMatern [facility], 700 1522, [facility], susp poor fetl , [facility] Dr [place], grth, 2nd tri, 120, Mohinder 120, , unspObesity [place], complicating [place]LE, [place], tel: , second [phone]. [email or web address] weeks , [place]. tel: gestation of tel: [phone] Billy Smith Spotting May-0 Daugherty Referring In Womens complicating 2-201 Mandie. Provider: Pam QUINONEZ, , second 8 700 Mandie Daugherty PO Box [email or web address] weeks Medical , 700 1522, gestation of [facility], , [facility] Dr [place], 120, Mohinder 120, , [place], MICHELE [place], tel: [phone]. , [place]. tel: tel: [phone] Billy Smith Matern care for Apr-1 Daugherty Referring In Womens oth or susp poor 2-201 Mandie. Provider: Health CRISTIANO, fetl gr, 2nd 8 700 Mandie Daugherty PO Box tri, [email or web address] weeks [facility], 700 1522, gestation of [facility], , [facility] Dr [place], 120, Mohinder 120, , [place] Smith, MICHELE [place], tel: [phone]. , [place]. tel: tel: [phone] [facility] Obesity Mar-0 Daugherty Referring In Womens complicating 9-201 Mandie. Provider: Health [place], , first 8 700 Mandie Daugherty PO Box [facility], 700 152, r for suprvsn of [facility], normal , , [facility] Dr [place], first trimester9 120, Mohinder 120, , weeks gestation Luis Smith, of MICHELE [place], tel: [phone]. , [place]. tel: tel: [phone] [facility] Encounter for Fe-2 Sobbing Referring In Womens suprvsn of normal 3-201 Silas. Provider: Health CRISTIANO, , first 8 700 Mandie Daugherty PO Box [facility], 700 152, [facility], [facility], [place] [address] [place], [address], , 120, [place], [place] MICHELE Smith, tel: MICHELE, [phone]. [id number], tel: [place]. [phone] tel: [phone] [facility] MyalgiaRight Aug-2 Daugherty Referring In Womens lower quadrant 2-201 Mandie. Provider: Health CRISTIANO, pain 7 700 Mandie Daugherty PO Box [facility], 700 1522, [facility], , [facility] Dr [place], 120, Mohinder 120, , [place] Smith, MICHELE [place], tel: [phone]. , [place]. tel: tel: [phone] [facility] Morbid (severe) Apr-2 Daugherty Referring In Womens obesity due to 1-201 Mandie. Provider: Health CRISTIANO, excess 7 700 Mandie Daugherty PO Box caloriesEncntr [facility], 700 1522, for commercial project manager exam [facility], (general) , [facility] Dr [place], (routine) w 120, Mohinder 120, [id number], abnormal [place], findingsEncounter MICHELE [place], tel: for removal of [phone]. intrauterine , [place]. tel: contraceptive tel: [phone] deviceEncounter [phone] for removal of intrauterine contraceptive deviceEncounter for oth general cnsl and advice on procreationBody mass index (BMI) 50-59.9 , adult [facility] Morbid (severe) Apr-2 Daugherty Referring In Womens obesity due to Mandie. Provider: Pam QUINONEZ, excess 6 700 Mandie Farahb PO Box caloriesEncntr Medical K, 700 1522, for commercial project manager exam [place] Kevyn Gutierrez, (general) , [facility] Center Dr [place], (routine) w 120, Mohinder 120, , abnormal Luis [place], findingsPap Smear MICHELE, MICHELE, tel: Screening, [phone]. CervixEncounter , [place]. tel: for routine tel: [phone] checking of [phone] intrauterine contracep devBody mass index (BMI) 50-59.9 , adult [facility] Dec- Oneil Referring In Womens - Analy. Provider: Pam QUINONEZ, 4 700 Mandie Farahb PO Box Medical K, 700 1522, [place] [address], [facility] Dr [place], 120, Mohinder 120, [id number], Luis Smith, MICHELE, MICHELE, tel: [phone]. , [place]. tel: tel: [phone] [facility] Feb- Daugherty In Womens - Mandie. Pam QUINONEZ, 4 700 PO [address] Medical [address], [place] [address] Brenda, Mohinder MICHELE, 120, [id number], [place], [place], tel: [phone] , [place]. tel: [phone] Family History Family Member Diagnosis Age At [...] name Insurance type Covered democrat ID Authorization(s) Adrienne Wilson [id number] [employer] Out Of State [id number] [facility] [id number] Medicaid [facility] [id number] Medicaid Social History Type Description Quantity Date [...] Moser BOOKED Appointment Chelsy Moser BOOKED Appointment Chelys Moser BOOKED Appointment Chelsy Moser BOOKED Future Order: Radiology Order Complete OB Ultrasound > 14 Weeks Ordered ([id number]) Future Order: Radiology Order Biophysical Profile without NST Ordered ([id number]) Future Order: Radiology Order Biophysical Profile without NST Ordered ([id number]) Date Type Problem Goal Intervention Status Start [...]
[2017-12-06 00:03] VITALS: BMI 51.7
--- NOTE | 2017-12-06 10:18 | Progress Note ---
DATE OF ADMISSION: 12/05/2017 DESCRIPTION: This is a 32-year-old patient of Dr. Daugherty who came in this evening complaining of a piece of blood clot and some bright red bleeding when wiping. She had off and on cramps today. Bright red bleeding with wiping happened at 9:30 p.m. She came in and we put her on the monitor and heart tones were reassuring for gestational age. Her cramping is resolved. She has had no blood since arrival. We have a pad on to do pad counts. The patient was transferred to [place] a month ago with bleeding and decelerations and was kept for two days. She had steroids and magnesium sulfate. At this point in time heart tones are fine and she is not mahsa. She has been seen in the office on a one-to-two times a week and was seen yesterday by Dr. Daugherty. There is not a placenta previa and they have not found an obvious cause for the bleeding. On examination her uterus is soft and nontender and there is no rebound tenderness. I had them do a heplock and a CBC and a type and screen just in case we need to monitor. Her hemoglobin is 10.2 and hematocrit is 30 and platelets are 215,000. So we are not actively bleeding at the moment and the only blood she saw was with wiping. I do not think we need to transfer her to [place] at this point in time. However, I do not feel comfortable sending her home as just a triage so we are going to make her a medical outpatient and watch her at least overnight. We are going to continue pad counts to watch for bleeding. Questions were answered to the patient's satisfaction. FLOR
[2017-12-06 10:25] VITALS: BP 137/67; PULSE 67; RESP 20; TEMP 98.3; O2SAT 99
--- NOTE | 2017-12-06 10:31 | OB/GYN Progress Note ---
OB-Progress Note Free Text - Date Date: 12/06/17 - Progress Note Progress Note: vss af no bleeding since arrival at 2200 last noc uterus soft/nontender FHT reassuring for ga as no bleeding will plan dc to home already has f/u appt Friday (2 days from now). on vag rest q&a-krb
== END 2017-12-06 13:20 | disposition home or self-care (01) ==
LOC: OBOBS 21:57 → MC 21:57
PROVIDERS: ADMIT Obstetrics & Gynecology; ATTEND Obstetrics & Gynecology